=== PATIENT | male | born 1930 ===

== ENCOUNTER 2017-03-07 11:17 | Inpatient (IN) | payer MEDICARE, OTHER ==
--- NOTE | 2017-03-07 12:01 | C.PDOC ---
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 FAMILY REPORTS PT BASELINE AAO X 3 AND THAT HE HAS HAD DIFFICULTY WALKING DUE TO KNEE PAIN, BL KNEE ARTHRITIS. FAMILY NOTES EMS WAS CALLED DUE TO RIGHT ARM WEAKNESS YESTERDAY, REPORT EMS DID NOT FIND NEED TO BRING PT TO HOSPITAL. FAMILY ALSO REPORTS INCREASING CONFUSION FROM YESTERDAY WITH WORSENING SLURRED SPEECH. FAMILY ALSO REPORTS 2 EPISODES OF BLOODY EMESIS, DESCRIBED DARK BLOOD TINGED VOMIT. DENIES FEVER, CHILLS, DIARRHEA, TRAUMA, OR OTHER SX. EXAM AAO X 2 SEE NIH EXTREMITY: BILATERAL KNEE SWELLING, LIMITED ROM DUE TO PAIN Time Seen by Provider: 03/07/17 11:32 Chief Complaint (Nursing): Lower Extremity Problem/Injury History Per: Family History/Exam Limitations: language barrier Onset/Duration Of Symptoms: Days Current Symptoms Are (Timing): Still Present Recent travel outside of the [place]: No Past Medical History Reviewed: Historical Data, Nursing Documentation, Vital Signs Vital Signs: Last Vital Signs Temp 103.9 F H 03/07/17 12:51 Pulse 81 03/07/17 13:26 Resp 22 03/07/17 13:26 BP 127/53 L 03/07/17 13:26 Pulse Ox 95 03/07/17 13:33 - Medical History PMH: Arthritis, Asthma, Gastritis, HTN Family History: States: Unknown Family Hx - Social History Hx Tobacco Use: No Hx Alcohol Use: No Hx Substance Use: No - Immunization History Hx Tetanus Toxoid Vaccination: No Hx Influenza Vaccination: No Hx Pneumococcal Vaccination: No Review Of Systems Except As Marked, All Systems Reviewed And Found Negative. Constitutional: Negative for: Fever, Chills Cardiovascular: Negative for: Chest Pain Respiratory: Negative for: Cough, Shortness of Breath, Wheezing Gastrointestinal: Negative for: Vomiting Musculoskeletal: Positive for: Other (knee pain bilateral) Skin: Negative for: Rash Neurological: Positive for: Weakness (right upper extremity, right lower extremity), Change in Speech, Confusion. Negative for: Headache, Dizziness Physical Exam - Physical Exam Appears: Non-toxic, No Acute Distress, Other (AAO x 2) Skin: Warm, Dry Head: Atraumatic, Normacephalic Chest: Symmetrical Cardiovascular: Rhythm Regular Respiratory: Normal Breath Sounds, No Rales, No Rhonchi, No Wheezing Gastrointestinal/Abdominal: Soft, No Tenderness, No Guarding, No Rebound Back: Normal Inspection Extremity: Capillary Refill (< 2 sec.), No Deformity, Other (BILATERAL KNEE SWELLING, LIMITED ROM DUE TO PAIN ) Extremity: Bilateral: Atraumatic Neurological/Psych: Other (SEE NIH ) ED Course And Treatment - Laboratory Results Result Diagrams: 03/07/17 12:13 03/07/17 12:13 ECG: Interpreted By Me ECG Rhythm: Sinus Tachycardia ECG Interpretation: Abnormal Rate From EC O2 Sat by Pulse Oximetry: 95 Pulse Ox Interpretation: Normal - Radiology CXR: Interpreted by Me CXR Interpretation: Yes: No Acute Disease NIHSS Stroke Scale - Date/Time Evaluation Performed Date Performed: 03/07/17 Time Performed: 12:00 When Was NIHSS Performed: Baseline - How Severe is the Stroke Level of Consciousness: 0=Alert LOC to Questions: 0=Both comments correct LOC to commands: 0=Obeys both correctly Best Gaze: 0=Normal Visual: 0=No visual loss Facial: 1=Minor asymmetry Motor Arm - Left: 0=No drift Motor Arm - Right: 0=No drift Motor Leg - Left: 3=No effort against gravity (falls immediately) Motor Leg - Right: 3=No effort against gravity (falls immediately) Limb Ataxia: 0=Absent Sensory: 0=Normal Best Language: 0=No aphasia Dysarthia: 1=Mild to moderate slurring Extinction & Inattention (Neglect): 0=Normal, no object Score: 8 Progress - Re-Evaluation Re-evaluation Note: 03/07/17 12:34 +RECTAL TEMP. EXAM [facility]. 03/07/17 13:33 ct neg D/W DR MITCHELL 03/07/17 13:38 D/W DR CLEMONS WILL ADMIT - Data Reviewed Data Reviewed: Lab, Diagnostic imaging, EKG, Old records - Critical Care Citical Care: Excluding Proc Time Critical Care Time: 90 minutes - Continuity of Care Discussed patient case with:: Patient, Family-HIPPA compliant, PMD rTPA Inclusion/Exclusion - Refusal of Treatment Patient Refused Treatment: No - Inclusion Criteria for Altepase Patient is 18 years or Older: Yes The Clinical Diagnosis of Ischemic Stroke That is Causing a Potentially Disabling Neurological Deficit: Yes Time of Onset is Well Established to be Less Than 270 Minute Before Treatment Would Begin: No Risk/Benefit Discussed With Patient/Family Member Present: No - Exclusion Criteria for Altepase Uncontrolled Hypertension at Time of Treatment (Systolic BP above 185 or Diastolic BP above 110 mmHg): No Active Internal Bleeding: No Known Bleeding Diathesis Including but Not Limited to: Platelets Below 100,000/ mm,PTT Above 40 sec After Heparin Use, Current Use of Oral Anitcoagulant With INR Greater Than 1.7 or PT Greater Than 15 secs: No Evidence of an Intracranial Hemorrhage: No Evidence of Major Acute Infarct With Signs Greater Than 1/3 MCA Territory: No Suspicion of Subarachnoid Hemorrhage on Pretreatment Evaluation Even if CT Head Negative For Hemorrhage: No - Warning to TPA With Conditions Following Conditions Weighed Against Anticipated Benefit: Yes Condition: Age Greater Than 75 years, Recent GI Bleed w/in 21 Days Additional Condition (For 3-4.5 Hour Window): Age Greater Than 80 Disposition Counseled Patient/Family Regarding: Studies Performed, Diagnosis - Disposition Disposition: HOSPITALIZED Disposition Time: 13:39 Condition: STABLE - POA Present On Arrival: Poor Glycemic Control - Clinical Impression Clinical Impression: Fever, TIA (transient ischemic attack), Difficulty walking - Scribe Statement The provider has reviewed the documentation as recorded by the Giselle BARRIOS Provider Attestation: All medical record entries made by the Giselle were at my direction and personally dictated by me. I have reviewed the chart and agree that the record accurately reflects my personal performance of the history, physical exam, medical decision making, and the department course for this patient. I have also personally directed, reviewed, and agree with the discharge instructions and disposition. Decision To Admit - Pt Status Changed To: Hospital Disposition Of: Inpatient - Admit Certification Admit to Inpatient:: After my assessment, the patient will require hospitalization for at least two midnights. This is because of the severity of symptoms shown, intensity of services needed, and/or the medical risk in this patient being treated as an outpatient. - InPatient: Physician Admission Certification: I certify that this patient requires 2 or more midnights of care for the following reason:: SEE NOTE - . Bed Request Type: Telemetry Admitting Physician: Chucho Clemons Patient Diagnosis: Fever, TIA (transient ischemic attack), Difficulty walking
[2017-03-07 12:23] LABS: BASO % 0.2 % (0.0-2.0); EOS % 0.1 % (0.0-4.0); LYMPH # 0.5 K/uL (1.0-4.3); LYMPH % 2.9 % (20.0-40.0); MEAN CELL VOLUME 92.6 fL (80.0-94.0); MEAN CORPUSCULAR HEMOGLOBIN 30.7 pg (27.0-31.0); MEAN CORPUSCULAR HGB CONC 33.2 g/dL (33.0-37.0); MEAN PLATELET VOLUME 10.1 fL (7.2-11.7); MONO # 0.8 K/uL (0.0-0.8); MONO % 4.8 % (0.0-10.0); NEUT # 16.1 K/uL (1.8-7.0); PLATELET COUNT 129 K/uL (130-400); RBC 4.57 Mil/uL (4.40-5.90); RED CELL DISTRIBUTION WIDTH 14.8 % (11.5-14.5); WHITE BLOOD COUNT 17.5 K/uL (4.8-10.8)
[2017-03-07 12:33] LABS: INR 1.1; PROTHROMBIN TIME 12.3 SECONDS (9.7-12.2)
[2017-03-07 12:34] LABS: ALBUMIN 3.4 g/dL (3.5-5.0)
[2017-03-07 12:37] LABS: ALB/GLOB RATIO 0.8 (1.0-2.1); AST/SGOT 120 U/L (17-59); BLOOD UREA NITROGEN 19 mg/dL (9-20); GFR AFRICAN-AMERICAN > 60; GFR NON-AFRICAN AMERICAN > 60
[2017-03-07 12:38] LABS: ALT/SGPT 71 U/L (21-72); CALCIUM 8.2 mg/dl (8.6-10.4); HDL CHOLESTEROL 46 mg/dL (30-70)
[2017-03-07] MEDS ORDERED: Sodium Chloride 0.9% 2,000 ML ONE ×2 (12:44→14:01)
[2017-03-07 12:46] LABS: LYMPHOCYTE 2 % (20-40); MONOCYTE 4 % (0-10); NEUTROPHIL 94 % (50-75); TOTAL CELLS COUNTED 100
[2017-03-07 12:47] LABS: VENOUS BLOOD GAS BASE EXCESS -9.1 mmol/L (0.0-2.0); VENOUS BLOOD GAS PCO2 20 mmHg (40-60); VENOUS BLOOD GAS PO2 29 mm/Hg (30-55); VENOUS BLOOD PH 7.42 (7.32-7.43)
[2017-03-07 12:47] LABS: PLATELET ESTIMATE SLIGHTLY DECREASED (NORMAL)
[2017-03-07 12:49] LABS: LDL CHOLESTEROL 58 mg/dL (0-129)
[2017-03-07 13:04] LABS: URINE AMORPHOUS SEDIMENT OCC /ul (<OCC); URINE BACTERIA OCC (<OCC); URINE BILIRUBIN NEGATIVE (NEGATIVE); URINE BLOOD 3+ (NEGATIVE); URINE CLARITY Hazy (Clear); URINE GLUCOSE (UA) 1+ mg/dL (Normal); URINE LEUKOCYTE ESTERASE NEG Leu/uL (Negative); URINE NITRATE NEGATIVE (NEGATIVE); URINE PROTEIN 3+ mg/dL (NEGATIVE); URINE UROBILINOGEN NORMAL mg/dL (0.2-1.0)
[2017-03-07 13:05] LABS: URINE COLOR YELLOW (YELLOW)
[2017-03-07] MEDS ORDERED: Azithromycin 500 MG in Sodium Chloride 0.9% 250 ML IV STA (13:37)
[2017-03-07] MEDS ORDERED: cefTRIAXone IV 1 gm in Dextros 50 ML IV STA (13:37)
--- NOTE | 2017-03-07 13:38 | CT ---
PROCEDURE: CT HEAD WITHOUT CONTRAST. HISTORY: SLURRED SPEECH, R SIDED WEAKNESS, CONFUSION COMPARISON: None available. TECHNIQUE: Axial computed tomography images were obtained through the head/brain without intravenous contrast. Radiation dose: Total exam DLP = 813.48 MGy-cm. This CT exam was performed using one or more of the following dose reduction techniques: Automated exposure control, adjustment of the mA and/or kV according to patient size, and/or use of iterative reconstruction technique. FINDINGS: HEMORRHAGE: No acute parenchymal, subarachnoid or extra-axial hemorrhage. . BRAIN: Mild to moderate chronic periventricular white matter ischemic changes are seen extending peripherally into the deep and subcortical white matter both cerebral hemispheres. Is also extend into the white matter tracts of both basal nuclei. . Note that the possibility of a hyperacute infarct may not be evident on initial CT imaging. Clinical correlation recommended to determine whether additional studies such as MRI with diffusion imaging is required any urgency of such imaging based on whether the patient is a treatment window for tPA therapy. Mild -moderate generalized volume loss. VENTRICLES: No evidence of obstructive hydrocephalus. CALVARIUM: There are no acute calvarial fractures PARANASAL SINUSES: Unremarkable as visualized. No significant inflammatory changes. MASTOID AIR CELLS: Unremarkable as visualized. No inflammatory changes. OTHER FINDINGS: None. IMPRESSION: No acute intracranial hemorrhage. Mild to moderate chronic periventricular white matter ischemic changes are seen extending peripherally into the deep and subcortical white matter both cerebral hemispheres. Is also extend into the white matter tracts of both basal nuclei. . Note that the possibility of a hyperacute infarct may not be evident on initial CT imaging. Clinical correlation recommended to determine whether additional studies such as MRI with diffusion imaging is again notches CT I required any urgency of such imaging based on whether the patient is a treatment window for tPA therapy. Mild -moderate generalized volume loss Case discussed with Dr. Gillespie at approximately 1:33 p.m. with written down and read back verification.
[2017-03-07] MEDS ORDERED: cefTRIAXone IV 1 gm in Dextros 50 ML IVPB ONE (13:57)
[2017-03-07] MEDS ORDERED: Azithromycin 500mg/250ML NS 500 MG/250 ML BAG IVPB ONE (13:58)
--- NOTE | 2017-03-07 14:05 | RAD ---
HISTORY: STROKE COMPARISON: No prior. FINDINGS: LUNGS: Mild to moderate venous congestion with bibasilar airspace opacities and question trace right pleural effusion. Biapical pleural thickening with upper lobe granulomatous changes. PLEURA: As above. CARDIOVASCULAR: Tortuous ectatic aorta. Mild cardiomegaly. OSSEOUS STRUCTURES: No significant abnormalities. VISUALIZED UPPER ABDOMEN: Normal. OTHER FINDINGS: None. IMPRESSION: Mild to moderate venous congestion with bibasilar airspace opacities and question trace right pleural effusion. Biapical pleural thickening with upper lobe granulomatous changes.
[2017-03-07] MEDS ORDERED: Sodium Chloride 0.9% 500 ML IV ONE (14:49)
[2017-03-07 14:50] LABS: VENOUS BLOOD GAS BASE EXCESS -8.4 mmol/L (0.0-2.0); VENOUS BLOOD GAS PCO2 31 mmHg (40-60); VENOUS BLOOD GAS PO2 22 mm/Hg (30-55); VENOUS BLOOD PH 7.33 (7.32-7.43)
[2017-03-07 17:49] LABS: ABG ALLEN TEST N; ARTERIAL BLOOD GAS HCO3 19.3 mmol/L (21-28); ARTERIAL BLOOD GAS HEMOGLOBIN 13.7 g/dL (11.7-17.4); ARTERIAL BLOOD GAS O2 SAT 98.2 % (95-98); ARTERIAL BLOOD GAS PCO2 27 mm/Hg (35-45); ARTERIAL BLOOD GAS PH 7.39 (7.35-7.45); ARTERIAL BLOOD GAS PO2 75 mm/Hg (80-100); ARTERIAL BLOOD GAS TCO2 17.1 mmol/L (22-28)
[2017-03-07] MEDS: Piperacillin/Tazobact 3.375 GM in Sodium Chloride 100 ML IVPB SCH (19:45)
[2017-03-07] MEDS: Albuterol 0.042% Inhal Sol (1.25 mg/3 mL) UD INH SCH (19:56)
--- NOTE | 2017-03-07 23:10 | CP.PCM.HP ---
History of Present Illness - History of Present Illness History of Present Illness: 86 year old male developed right sided weakness, progressive mental confusion,fever and joint pain. Patient was evaluated and admission was advised. He has a long history of degenerative joint disease, ASHD, and osteoporosis. Present on Admission - Present on Admission Any Indicators Present on Admission: No History of DVT/PE: No History of Uncontrolled Diabetes: No Urinary Catheter: No Decubitus Ulcer Present: No History Surgical Site Infection Following: None Review of Systems - Review of Systems Systems not reviewed;Unavailable: Dementia - Constitutional Constitutional: Weakness - EENT Eyes: Change in Vision Ears: Decreased Hearing Nose/Mouth/Throat: Sinus Pain - Cardiovascular Cardiovascular: Dyspnea on Exertion - Respiratory Respiratory: Dyspnea on Exertion - Gastrointestinal Gastrointestinal: Constipation - Genitourinary Genitourinary: Urinary Frequency - Musculoskeletal Musculoskeletal: Arthralgias - Integumentary Integumentary: Dry Skin - Neurological Neurological: Burning Sensations - Psychiatric Psychiatric: Memory Loss - Endocrine Endocrine: Fatigue Past Patient History - Tetanus Immunizations Tetanus Immunization: Up to Date - Past Medical History & Family History Past Medical History?: Yes - Past Social History Smoking Status: Never Smoked Chewing Tobacco Use: No Cigar Use: No Alcohol: None Drugs: Denies Home Situation {Lives}: With Family - CARDIAC Hx Cardiac Disorders: Yes Hx Cardia Arrhythmia: Yes Hx Hypertension: Yes - PULMONARY Hx Asthma: Yes - HEENT Hx Macular Degeneration: Yes - MUSCULOSKELETAL/RHEUMATOLOGICAL Hx Arthritis: Yes Hx Back Pain: Yes Hx Degenerative Joint Disease: Yes Hx Falls: Yes Hx Osteoporosis: Yes - GASTROINTESTINAL Hx Gastritis: Yes - PSYCHIATRIC Hx Substance Use: No - SURGICAL HISTORY Hx Surgeries: No - ANESTHESIA Hx Anesthesia: No Hx Anesthesia Reactions: No Hx Malignant Hyperthermia: No Has any member of the family had a problem w/ anesthesia?: No Meds Allergies/Adverse Reactions: Allergies Allergy/AdvReac Type Severity Reaction Status Date / Time No Known Allergies Allergy Unverified 03/07/17 11:29 Physical Exam - Constitutional Appears: Confused - Head Exam Head Exam: NORMOCEPHALIC - Eye Exam Eye Exam: PERRL Pupil Exam: NORMAL ACCOMODATION - ENT Exam ENT Exam: Normal Exam - Neck Exam Neck exam: Positive for: Normal Inspection - Respiratory Exam Respiratory Exam: Decreased Breath Sounds - Cardiovascular Exam Cardiovascular Exam: Irregular Rhythm - GI/Abdominal Exam GI & Abdominal Exam: Normal Bowel Sounds - Rectal Exam Rectal Exam: Deferred - Exam Exam: NORMAL INSPECTION - Extremities Exam Extremities exam: Positive for: tenderness - Back Exam Back exam: paraspinal tenderness - Neurological Exam Neurological exam: Altered - Psychiatric Exam Psychiatric exam: Depressed - Skin Skin Exam: Dry Results - Vital Signs Recent Vital Signs: Last Vital Signs Temp 97.5 F L 03/07/17 17:01 Pulse 76 03/07/17 19:58 Resp 20 03/07/17 17:01 BP 107/51 L 03/07/17 17:01 Pulse Ox 96 03/07/17 17:01 - Labs Result Diagrams: 03/07/17 12:13 03/07/17 12:13 Labs: Laboratory Results - last 24 hr 03/07/17 03/07/17 14:47 17:40 Puncture Site Rb pCO2 27 L pO2 22 L 75 L HCO3 19.3 L ABG pH 7.39 ABG Total CO2 17.1 L ABG O2 Saturation 98.2 H ABG Base Excess -7.1 L ABG Hemoglobin 13.7 ABG Carboxyhemoglobin 1.7 H POC ABG HHb (Measured) 1.7 ABG Methemoglobin 1.4 [place] Test N VBG pH 7.33 VBG pCO2 31 L VBG HCO3 16.6 VBG Total CO2 17.3 L VBG O2 Sat (Calc) 51.9 VBG Base Excess -8.4 L VBG Potassium 3.3 L A-a O2 Difference 91.0 Respiratory Index 1.2 Hgb O2 Saturation 95.2 Sodium 136.0 Chloride 111.0 H Glucose 140 H Lactate 1.9 Liter Flow 2.0 FiO2 28.0 Venous Blood Potassium 3.3 L Assessment & Plan (1) Altered mental status Status: Acute (2) Fever Status: Acute (3) TIA (transient ischemic attack) Status: Acute (4) Arthritis Status: Acute
[2017-03-08] MEDS: Albuterol 0.042% Inhal Sol (1.25 mg/3 mL) UD INH SCH ×4 (01:27→19:55)
[2017-03-08] MEDS: Piperacillin/Tazobact 3.375 GM in Sodium Chloride 100 ML IVPB SCH ×3 (03:11→19:30)
[2017-03-08 06:36] LABS: BASO % 0.2 % (0.0-2.0); EOS # 0.1 K/uL (0.0-0.7); EOS % 0.9 % (0.0-4.0); HEMOGLOBIN 13.4 g/dL (12.0-18.0); LYMPH # 0.5 K/uL (1.0-4.3); LYMPH % 3.8 % (20.0-40.0); MEAN CELL VOLUME 92.8 fL (80.0-94.0); MEAN CORPUSCULAR HEMOGLOBIN 31.1 pg (27.0-31.0); MEAN CORPUSCULAR HGB CONC 33.5 g/dL (33.0-37.0); MEAN PLATELET VOLUME 10.3 fL (7.2-11.7); MONO # 0.5 K/uL (0.0-0.8); MONO % 3.7 % (0.0-10.0); NEUT # 11.8 K/uL (1.8-7.0); NEUT % 91.4 % (50.0-75.0); PLATELET COUNT 135 K/uL (130-400); RBC 4.32 Mil/uL (4.40-5.90); RED CELL DISTRIBUTION WIDTH 15.9 % (11.5-14.5); WHITE BLOOD COUNT 12.9 K/uL (4.8-10.8)
[2017-03-08 07:36] LABS: FREE T4 1.27 ng/dL (0.78-2.19)
[2017-03-08 09:22] LABS: PROLACTIN 23.2 ng/mL (3.7-17.9)
[2017-03-08 09:37] LABS: BANDS 1 % (0-2); LYMPHOCYTE 2 % (20-40); MONOCYTE 5 % (0-10); NEUTROPHIL 92 % (50-75); TOTAL CELLS COUNTED 100
[2017-03-08 09:38] LABS: PLATELET ESTIMATE NORMAL (NORMAL)
--- NOTE | 2017-03-08 11:30 | US ---
HISTORY: Abdominal pain COMPARISON: CT abdomen from 11/23/2011 TECHNIQUE: Sonographic evaluation of the abdomen. FINDINGS: LIVER: Measures 15.3 cm. Normal echogenicity of the liver parenchyma. No mass. No intrahepatic bile duct dilatation. GALLBLADDER: There are no gallstones. There is mild gallbladder wall thickening and minimal pericholecystic fluid. The sonographic Damian's sign is negative. COMMON BILE DUCT: Measures 6.5 mm. No stones. No dilatation. PANCREAS: Unremarkable as visualized. No mass. No ductal dilatation. RIGHT KIDNEY: Measures 9.5cm. Normal echogenicity. No calculus, mass, or hydronephrosis. LEFT KIDNEY: Measures 10.0cm. Normal echogenicity. No calculus, mass, or hydronephrosis. There is a 1.9 x 1.6 x 2.3 cm simple cyst in the upper pole. SPLEEN: Normal in size and contour. No mass. AORTA: No aneurysmal dilatation. IVC: Unremarkable. OTHER FINDINGS: None. IMPRESSION: Limited examination as the patient was unable to hold breath. Allowing for this mild gallbladder wall thickening and small amount of pericholecystic fluid. No evidence of cholelithiasis. Sonographic Damian's sign is negative. Acute acalculous cholecystitis cannot be entirely excluded. Clinical follow-up is advised.
[2017-03-08 12:21] LABS: FOLATE 19.1 ng/mL
[2017-03-08 13:13] LABS: TROPONIN I 0.275 ng/mL (0.00-0.120)
--- NOTE | 2017-03-08 20:14 | MRI ---
PROCEDURE: MRI BRAIN WITHOUT CONTRAST HISTORY: TIA COMPARISON: Noncontrast head CT from 03/07/2017 and 1:13 p.m. TECHNIQUE: Multiplanar, multisequence MR images of the brain were obtained without intravenous contrast enhancement. FINDINGS: HEMORRHAGE: None DWI: No evidence of an acute or early subacute infarction. BRAIN PARENCHYMA: There are moderate chronic microangiopathic changes. There is no mass, mass effect or abnormal extra-axial fluid collection. The midline sagittal structures are normal. VENTRICLES: There is moderate age-related global parenchymal volume loss and proportionate enlargement of the ventricles and cortical sulci. CRANIUM: There is normal bone marrow signal pattern. ORBITS: Grossly unremarkable. PARANASAL SINUSES/MASTOIDS: There is a retention cyst/ polyp in the right maxillary sinus. The remaining included paranasal sinuses and mastoid air cells are predominantly clear. VASCULAR SYSTEM: There are normal signal voids in the larger intracranial arteries. OTHER FINDINGS: None. IMPRESSION: No acute intracranial abnormality. Moderate chronic microangiopathic changes and moderate age-related global parenchymal volume loss.
--- NOTE | 2017-03-08 20:58 | CP.PCM.CON ---
History of Present Illness - History of Present Illness History of Present Illness: 86 yo male brought to the ED because of confusion, slurred speech, right sided weakness and fever. He was found to have a leucocytosis, a slightly elevated serum TNI's and mild congestion on the CXR with elevated Pro-BNP. CT scan of the head and MRI of the head were negative for an acute cerebral infract. He denies any chest pain, any SOB. He was put on Rocephin and Zithromax with improvement. He is now alert, oriented with no complaint. Initial blood cultures were negative. He is known to have a bronchial asthma, a hypertension, an osteoarthritis. Review of Systems - Constitutional Constitutional: Fever, Weakness - Musculoskeletal Musculoskeletal: Muscle Weakness - Neurological Neurological: Abnormal Speech, Confusion, Focal Weakness Past Patient History - Tetanus Immunizations Tetanus Immunization: Up to Date - Past Medical History & Family History Past Medical History?: Yes - Past Social History Smoking Status: Never Smoked Chewing Tobacco Use: No Cigar Use: No Alcohol: None Drugs: Denies Home Situation {Lives}: With Family - CARDIAC Hx Cardiac Disorders: Yes Hx Cardia Arrhythmia: Yes Hx Hypertension: Yes - PULMONARY Hx Asthma: Yes - HEENT Hx Macular Degeneration: Yes - MUSCULOSKELETAL/RHEUMATOLOGICAL Hx Arthritis: Yes Hx Back Pain: Yes Hx Degenerative Joint Disease: Yes Hx Falls: Yes Hx Osteoporosis: Yes - GASTROINTESTINAL Hx Gastritis: Yes - PSYCHIATRIC Hx Substance Use: No - SURGICAL HISTORY Hx Surgeries: No - ANESTHESIA Hx Anesthesia: No Hx Anesthesia Reactions: No Hx Malignant Hyperthermia: No Has any member of the family had a problem w/ anesthesia?: No Meds Allergies/Adverse Reactions: Allergies Allergy/AdvReac Type Severity Reaction Status Date / Time No Known Allergies Allergy Unverified 03/07/17 11:29 - Medications Medications: Current Medications Acetaminophen (Tylenol 325mg Tab) 650 mg PO Q6H PRN PRN Reason: MODERATE PAIN (4-7) Last Admin: 03/08/17 14:45 Dose: 650 mg Albuterol Sulfate (Albuterol 0.042% Inhal Alanis (1.25mg/3ml) Ud) 1.25 mg INH RQ6 [facility] Last Admin: 03/08/17 13:52 Dose: 1.25 mg Amlodipine Besylate (Norvasc) 2.5 mg PO DAILY [facility] Last Admin: 03/08/17 14:30 Dose: 2.5 mg Folic Acid (Folic Acid) 1 mg PO DAILY [facility] Hydroxyzine HCl (Atarax) 10 mg PO BID [facility] Last Admin: 03/08/17 18:55 Dose: 10 mg Piperacillin Sod/Tazobactam (Sod 3.375 gm/ Sodium Chloride) 100 mls @ 200 mls/ hr IVPB Q8H [facility] Last Admin: 03/08/17 19:30 Dose: 200 mls/hr Montelukast Sodium (Singulair) 10 mg PO HS [facility] Pantoprazole Sodium (Protonix Ec Tab) 40 mg PO DAILY [facility] Physical Exam - Constitutional Appears: No Acute Distress, Chronically Ill - Head Exam Head Exam: NORMAL INSPECTION - Eye Exam Eye Exam: Normal appearance - ENT Exam ENT Exam: Normal Exam - Neck Exam Neck exam: Positive for: Normal Inspection - Respiratory Exam Respiratory Exam: Rhonchi Additional comments: Few rhonchi heard at both bases. - Cardiovascular Exam Cardiovascular Exam: REGULAR RHYTHM - GI/Abdominal Exam GI & Abdominal Exam: Normal Bowel Sounds, Soft - Rectal Exam Rectal Exam: Deferred - Extremities Exam Extremities exam: Positive for: normal inspection - Back Exam Back exam: NORMAL INSPECTION - Neurological Exam Neurological exam: Alert, Oriented x3 - Psychiatric Exam Psychiatric exam: Anxious - Skin Skin Exam: Dry, Intact, Normal Color, Warm Results - Vital Signs Recent Vital Signs: Last Vital Signs Temp 98.1 F 03/08/17 11:13 Pulse 98 H 03/08/17 11:13 Resp 20 03/08/17 11:13 BP 166/71 H 03/08/17 11:13 Pulse Ox 94 L 03/08/17 11:13 - Labs Result Diagrams: 03/08/17 06:20 03/08/17 06:20 Labs: Laboratory Results - last 24 hr 03/08/17 03/08/17 03/08/17 06:20 06:20 06:20 WBC 12.9 H RBC 4.32 L Hgb 13.4 Hct 40.1 MCV 92.8 MCH 31.1 H MCHC 33.5 RDW 15.9 H Plt Count 135 MPV 10.3 Neut % (Auto) 91.4 H Lymph % (Auto) 3.8 L [place] % (Auto) 3.7 Eos % (Auto) 0.9 Baso % (Auto) 0.2 Neut # 11.8 H Lymph # 0.5 L [place] # 0.5 Eos # 0.1 Baso # 0.0 Neutrophils % (Manual) 92 H Band Neutrophils % 1 Lymphocytes % (Manual) 2 L Monocytes % (Manual) 5 Platelet Estimate Normal RBC Morphology Normal ESR 74 H Sodium 139 Potassium 4.1 Chloride 110 H Carbon Dioxide 18 L BUN 22 H Total Creatine Kinase 2154 H Troponin I 0.2750 H* NT-Pro-B Natriuret Pep 2300 H Vitamin B12 304 Folate 19.1 Homocysteine 12.8 Free T4 1.27 TSH 3rd Generation 1.02 1.12 Prolactin 23.2 H Assessment & Plan (1) TIA (transient ischemic attack) Status: Acute (2) Elevated troponin I level Assessment and Plan: There is however no chest pain, no SOB, no acute ECG change. Will get an ECHO to assess LV wall motion. Status: Acute (3) Elevated brain natriuretic peptide (BNP) level Assessment and Plan: ECHO to assess Cardiac chambers and valves. Status: Acute
--- NOTE | 2017-03-08 21:14 | CP.PCM.PN ---
Subjective - Date & Time of Evaluation Date of Evaluation: 03/08/17 Time of Evaluation: 14:10 - Subjective Subjective: Patient is afebrile, more alert and responsive. He denies any chest pain or abdominal pain. WBC's down to 12,000. Patient responding to antibiotic therapy. Neurology evaluation pending. Objective - Vital Signs/Intake and Output Vital Signs (last 24 hours): Temp Pulse Resp BP Pulse Ox 98.1 F 98 H 20 166/71 H 94 L 03/08/17 11:13 03/08/17 11:13 03/08/17 11:13 03/08/17 11:13 03/08/17 11:13 - Medications Medications: Current Medications Acetaminophen (Tylenol 325mg Tab) 650 mg PO Q6H PRN PRN Reason: MODERATE PAIN (4-7) Last Admin: 03/08/17 14:45 Dose: 650 mg Albuterol Sulfate (Albuterol 0.042% Inhal Alanis (1.25mg/3ml) Ud) 1.25 mg INH RQ6 [facility] Last Admin: 03/08/17 13:52 Dose: 1.25 mg Amlodipine Besylate (Norvasc) 2.5 mg PO DAILY [facility] Last Admin: 03/08/17 14:30 Dose: 2.5 mg Folic Acid (Folic Acid) 1 mg PO DAILY [facility] Hydroxyzine HCl (Atarax) 10 mg PO BID [facility] Last Admin: 03/08/17 18:55 Dose: 10 mg Piperacillin Sod/Tazobactam (Sod 3.375 gm/ Sodium Chloride) 100 mls @ 200 mls/ hr IVPB Q8H [facility] Last Admin: 03/08/17 19:30 Dose: 200 mls/hr Montelukast Sodium (Singulair) 10 mg PO HS [facility] Pantoprazole Sodium (Protonix Ec Tab) 40 mg PO DAILY [facility] - Labs Labs: 03/08/17 06:20 03/08/17 06:20 PT 12.3 SECONDS (9.7-12.2) H 03/07/17 12:13 INR 1.1 03/07/17 12:13 APTT 39 SECONDS (21-34) H 03/07/17 12:13 - Constitutional Appears: No Acute Distress - Head Exam Head Exam: NORMAL INSPECTION - Eye Exam Eye Exam: Normal appearance Pupil Exam: NORMAL ACCOMODATION - ENT Exam ENT Exam: Normal Exam - Neck Exam Neck Exam: Normal Inspection - Respiratory Exam Respiratory Exam: Decreased Breath Sounds - Cardiovascular Exam Cardiovascular Exam: REGULAR RHYTHM - GI/Abdominal Exam GI & Abdominal Exam: Normal Bowel Sounds - Rectal Exam Rectal Exam: Deferred - Exam Exam: NORMAL INSPECTION - Extremities Exam Extremities Exam: Tenderness - Back Exam Back Exam: NORMAL INSPECTION - Neurological Exam Neurological Exam: Alert - Psychiatric Exam Psychiatric exam: Normal Affect - Skin Skin Exam: Dry Assessment and Plan (1) Altered mental status Status: Acute (2) Fever Status: Acute (3) TIA (transient ischemic attack) Status: Acute (4) Arthritis Status: Acute (5) Difficulty walking Status: Acute (6) Elevated brain natriuretic peptide (BNP) level Status: Acute (7) Elevated troponin I level Status: Acute
--- NOTE | 2017-03-08 21:31 | C.PDOC ---
History Of Present Illness HE WAS PRESENTING WITH 2 DAYS HISTORY OF SLURRED SPEECH AND RIGHT ARM WEAKNESS PER HISTORY .DENIES VISUAL OR GAIT DISTURBANCES. NO IMPAIRED MENTATION . NO LOC Time Seen by Provider: 03/07/17 11:32 Chief Complaint (Nursing): Lower Extremity Problem/Injury Onset/Duration Of Symptoms: Other (NO PRESENTING SYMPTOMS EXCEPT LEG WEAKNESS) Past Medical History Vital Signs: Last Vital Signs Temp 97.4 F L 03/13/17 15:18 Pulse 63 03/13/17 16:00 Resp 20 03/13/17 15:18 BP 134/70 03/13/17 15:18 Pulse Ox 94 L 03/16/17 11:13 - Medical History PMH: Arthritis, Asthma, Cardia Arrhythmia, Gastritis, HTN, Osteoporosis Family History: States: Unknown Family Hx - Social History Hx Tobacco Use: No Hx Alcohol Use: No Hx Substance Use: No - Immunization History Hx Tetanus Toxoid Vaccination: No Hx Influenza Vaccination: No Hx Pneumococcal Vaccination: No Physical Exam - Physical Exam Appears: Well (x), No Acute Distress Skin: Normal Color, Warm, Dry Head: Atraumatic Neck: Normal Cardiovascular: Rhythm Regular Respiratory: Normal Breath Sounds Extremity: Other (BOTH LEG WEAKNESS AND STRENGTH IS 3/5) Pulses: Left Carotid: Normal, Right Carotid: Normal DTR: Bicep (R): 0, Bicep (L): 0, Tricep (R): 0, Tricep (L): 0, Knee (R): 0, Knee (L): 0, Ankle (R): 0, Ankle (L): 0 Neurological/Psych: Oriented x3, Normal Speech, Normal Cognition, Normal Cranial Nerves Gait: Unable To Assess Extremity: Right: No Drift, Left: No Drift ED Course And Treatment - Laboratory Results Result Diagrams: 03/13/17 07:12 03/13/17 07:12 O2 Sat by Pulse Oximetry: 94 Progress Note: MRI- SMALL VESSEL DISEASE NO ACUTE ISCHEMIC PROCESS. EEG TO BE CHECKED TO R/O SEIZURES. OOB. PHYSICAL THERAPY. CONTINUE ANTIPLATLETS Disposition - Disposition Disposition: HOSPITALIZED Condition: STABLE - Clinical Impression Clinical Impression: Fever, TIA (transient ischemic attack), Difficulty walking
[2017-03-09] MEDS: Albuterol 0.042% Inhal Sol (1.25 mg/3 mL) UD INH SCH ×3 (01:15→13:59)
[2017-03-09] MEDS: Piperacillin/Tazobact 3.375 GM in Sodium Chloride 100 ML IVPB SCH ×3 (02:59→19:49)
[2017-03-09 08:19] LABS: BASO % 0.4 % (0.0-2.0); EOS % 0.1 % (0.0-4.0); HEMOGLOBIN 12.8 g/dL (12.0-18.0); LYMPH # 0.5 K/uL (1.0-4.3); LYMPH % 6.8 % (20.0-40.0); MEAN CELL VOLUME 92.2 fL (80.0-94.0); MEAN CORPUSCULAR HEMOGLOBIN 30.7 pg (27.0-31.0); MEAN CORPUSCULAR HGB CONC 33.3 g/dL (33.0-37.0); MEAN PLATELET VOLUME 9.8 fL (7.2-11.7); MONO # 0.3 K/uL (0.0-0.8); MONO % 4.7 % (0.0-10.0); NEUT # 6.6 K/uL (1.8-7.0); PLATELET COUNT 118 K/uL (130-400); RBC 4.16 Mil/uL (4.40-5.90); RED CELL DISTRIBUTION WIDTH 15.8 % (11.5-14.5); WHITE BLOOD COUNT 7.5 K/uL (4.8-10.8)
[2017-03-09] MEDS: Pantoprazole 40 mg EC Tab PO SCH (09:31)
[2017-03-09 09:38] LABS: BANDS 1 % (0-2); LYMPHOCYTE 4 % (20-40); MONOCYTE 4 % (0-10); NEUTROPHIL 91 % (50-75); TOTAL CELLS COUNTED 100
[2017-03-09 09:39] LABS: ANISOCYTOSIS SLIGHT; PLATELET ESTIMATE SLIGHTLY DECREASED (NORMAL)
--- NOTE | 2017-03-09 11:29 | RAD ---
PROCEDURE: Cervical Spine Radiographs. HISTORY: Pain. COMPARISON: None. FINDINGS: BONES: There is straightening of the cervical spine with loss of normal cervical lordosis. Vertebral alignment is normal. Vertebral height is maintained. The C7 vertebral body is not visualized on lateral projection. DISC SPACES: There is mild degenerative disc disease at C2-3. SOFT TISSUES: Normal. No prevertebral soft tissue swelling. OTHER FINDINGS: None. IMPRESSION: Mild degenerative disc disease at C2-3. Straightening of the cervical spine may be positional or related to muscle spasm. .
--- NOTE | 2017-03-09 11:34 | RAD ---
PROCEDURE: Radiographs of the Lumbar Spine. HISTORY: Back pain COMPARISON: No prior. FINDINGS: BONES: There are age indeterminate osteoporotic compression fractures in the T11, T12 and L1 vertebral bodies. There is diffuse bone demineralization.. There is mild levoscoliosis in the lumbar spine. There is a degenerative mild anterior listhesis of L5 on S1. DISC SPACES: There is multilevel degenerative disc disease with anterior osteophytes, reduced disc heights and multilevel facet arthropathy, worse at L5-S1. OTHER FINDINGS: There are no pathologic soft tissue calcifications. IMPRESSION: 1. Age indeterminate osteoporotic compression fractures in the T11, T12 and L1 vertebral bodies. 2. Multilevel degenerative disc disease, worse at L5-S1.
--- NOTE | 2017-03-09 15:51 | CP.PCM.CON ---
History of Present Illness - History of Present Illness History of Present Illness: 86 yo male referred for eval of fever with + blood cultures Presented eith AMS / fever and slurred speech His weakness is improved but he is confused- saying he's been here for 3 weeks and asking to go ghome He denies headache, neck stiffness Hx deemed to be unreliable . CT scan of the head and MRI of the head were negative for an acute cerebral infract. He denies any chest pain, any SOB. He was put on Rocephin and Zithromax with improvement now on Vanco/ Zosyn Cultures pending Looks ill confused and has dry crackes await Pulm eval dr kaplan Review of Systems - Review of Systems Systems not reviewed;Unavailable: Altered Mental Status - Constitutional Constitutional: As Per HPI, Chills, Fever - EENT Eyes: absent: As Per HPI, Blind Spots, Blurred Vision, Change in Vision, Decreased Night Vision, Diplopia, Discharge, Dry Eye, Exophthalmos, Floaters, Irritation, Itchy Eyes, Loss of Peripheral Vision, Pain, Photophobia, Requires Corrective Lenses, Sees Flashes, Spots in Vision, Tunnel Vision, Other Visual Disturbances, Loss of Vision, Other Ears: absent: As Per HPI, Decreased Hearing, Ear Discharge, Ear Pain, Tinnitus, Abnormal Hearing, Disequilibrium, Dizziness, Other Nose/Mouth/Throat: absent: As Per HPI, Epistaxis, Nasal Congestion, Nasal Discharge, Nasal Obstruction, Nasal Trauma, Nose Pain, Post Nasal Drip, Sinus Pain, Sinus Pressure, Bleeding Gums, Change in Voice, Dental Pain, Dry Mouth, Dysphagia, Halitosis, Hoarsness, Lip Swelling, Mouth Lesions, Mouth Pain, Odynophagia, Sore Throat, Throat Swelling, Tongue Swelling, Facial Pain, Neck Pain, Neck Mass, Other - Cardiovascular Cardiovascular: As Per HPI - Respiratory Respiratory: absent: As Per HPI, Cough, Dyspnea, Hemoptysis, Dyspnea on Exertion , Wheezing, Snoring, Stridor, Pain on Inspiration, Chest Congestion, Excessive Mucous Production, Change in Mucous Color, Pain with Coughing, Other - Gastrointestinal Gastrointestinal: absent: As Per HPI, Abdominal Pain, Belching, Bloating, Change in Bowel Habits, Change in Stool Character, Coffee Ground Emesis, Constipation, Cramping, Diarrhea, Dyspepsia, Dysphagia, Early Satiety, Excessive Flatus, Fecal Incontinence, Heartburn, Hematemesis, Hematochezia, Loose Stools, Melena, Nausea, Odynophagia, Temesmus, Vomiting, Other - Genitourinary Genitourinary: absent: As Per HPI, Change in Urinary Stream, Difficulty Urinating, Dysuria, Flank Pain, Hematuria, Pyuria, Nocturia, Urinary Incontinence, Urinary Frequency, Urinary Hesitance, Urinary Urgency, Voiding Freq/Small Amts, Freq UTI, Hx Renal/Bladder Calculi, Hx /Renal Surgery, Bladder Distension, Other - Musculoskeletal Musculoskeletal: As Per HPI - Integumentary Integumentary: absent: As Per HPI, Acne, Alopecia, Bleeding Lesions, Change in Hair, Change in Nails, Change in Pigmentation, Changing Lesions, Dry Skin, Erythema, Furuncle, Hirsutism, Lesions, New Lesions, Non-Healing Lesions, Photosensitivity, Pruritus, Rash, Skin Pain, Skin Ulcer, Sores, Striae, Swelling , Unusual Bruising, Wounds, Jaundice, Other - Neurological Neurological: As Per HPI - Psychiatric Psychiatric: absent: As Per HPI, Abnormal Sleep Pattern, Anhedonia, Anxiety, Auditory Hallucinations, Behavioral Changes, Change in Appetite, Change in Libido, Confusion, Depression, Difficulty Concentrating, Hallucinations, Homicidal Ideation, Hopelessness, Irritability, Memory Loss, Mood Swings, Panic Attacks, Paranoia, Suicidal Ideation, Visual Hallucinations, Tactile Hallucinations, Other - Endocrine Endocrine: absent: As Per HPI, Change in Body Appearance, Change in Libido, Cold Intolorance, Deepening of Voice, Excessive Sweating, Fatigue, Flushing, Heat Intolorance, Increase in Ring/Shoe/Hat Size, Palpitations, Polydipsia, Polyphagia, Polyuria, Other - Hematologic/Lymphatic Hematologic: absent: As Per HPI, Easy Bleeding, Easy Bruising, Lymphadenopathy, Other Past Patient History - Tetanus Immunizations Tetanus Immunization: Up to Date - Past Medical History & Family History Past Medical History?: Yes - Past Social History Smoking Status: Never Smoked Chewing Tobacco Use: No Cigar Use: No Alcohol: None Drugs: Denies Home Situation {Lives}: With Family - CARDIAC Hx Cardia Arrhythmia: Yes Hx Hypertension: Yes - PULMONARY Hx Asthma: Yes - HEENT Hx Macular Degeneration: Yes - MUSCULOSKELETAL/RHEUMATOLOGICAL Hx Arthritis: Yes Hx Osteoporosis: Yes - GASTROINTESTINAL Hx Gastritis: Yes - PSYCHIATRIC Hx Substance Use: No - SURGICAL HISTORY Hx Surgeries: No - ANESTHESIA Hx Anesthesia: No Hx Anesthesia Reactions: No Hx Malignant Hyperthermia: No Has any member of the family had a problem w/ anesthesia?: No Meds Allergies/Adverse Reactions: Allergies Allergy/AdvReac Type Severity Reaction Status Date / Time No Known Allergies Allergy Unverified 03/07/17 11:29 - Medications Medications: Current Medications Acetaminophen (Tylenol 325mg Tab) 650 mg PO Q6H PRN PRN Reason: MODERATE PAIN (4-7) Last Admin: 03/08/17 14:45 Dose: 650 mg Albuterol Sulfate (Albuterol 0.042% Inhal Alanis (1.25mg/3ml) Ud) 1.25 mg INH RQ6 [facility] Last Admin: 03/09/17 13:59 Dose: 1.25 mg Amlodipine Besylate (Norvasc) 2.5 mg PO DAILY [facility] Last Admin: 03/09/17 09:32 Dose: 2.5 mg Folic Acid (Folic Acid) 1 mg PO DAILY [facility] Last Admin: 03/09/17 09:33 Dose: 1 mg Hydroxyzine HCl (Atarax) 10 mg PO BID [facility] Last Admin: 03/09/17 09:32 Dose: 10 mg Piperacillin Sod/Tazobactam (Sod 3.375 gm/ Sodium Chloride) 100 mls @ 200 mls/ hr IVPB Q8H [facility] Last Admin: 03/09/17 11:25 Dose: 200 mls/hr Montelukast Sodium (Singulair) 10 mg PO HS [facility] Last Admin: 03/08/17 21:49 Dose: 10 mg Pantoprazole Sodium (Protonix Ec Tab) 40 mg PO DAILY [facility] Last Admin: 03/09/17 09:31 Dose: 40 mg Physical Exam - Constitutional Appears: No Acute Distress, Confused, Chronically Ill - Head Exam Head Exam: ATRAUMATIC, NORMAL INSPECTION, NORMOCEPHALIC - Eye Exam Eye Exam: PERRL. absent: Scleral icterus - ENT Exam ENT Exam: Mucous Membranes Dry, Normal External Ear Exam, Normal Oropharynx - Neck Exam Neck exam: Negative for: Lymphadenopathy, Thyromegaly - Respiratory Exam Respiratory Exam: Decreased Breath Sounds, Rhonchi, Wheezes - Cardiovascular Exam Cardiovascular Exam: REGULAR RHYTHM, +S1, +S2 - GI/Abdominal Exam GI & Abdominal Exam: Diminished Bowel Sounds, Distended, Soft. absent: Tenderness - Rectal Exam Rectal Exam: Deferred - Exam Exam: NORMAL INSPECTION - Extremities Exam Extremities exam: Positive for: pedal pulses present. Negative for: calf tenderness, pedal edema, tenderness - Back Exam Back exam: absent: CVA tenderness (L), CVA tenderness (R), paraspinal tenderness - Neurological Exam Neurological exam: Alert, Altered, CN II-XII Intact, Reflexes Normal - Psychiatric Exam Psychiatric exam: Depressed - Skin Skin Exam: Dry, Intact Results - Vital Signs Recent Vital Signs: Last Vital Signs Temp 97.6 F 03/09/17 07:35 Pulse 84 03/09/17 10:00 Resp 22 03/09/17 07:35 BP 149/72 03/09/17 07:35 Pulse Ox 94 L 03/09/17 07:35 - Labs Result Diagrams: 03/09/17 08:13 03/08/17 06:20 Labs: Laboratory Results - last 24 hr 03/08/17 03/08/17 03/09/17 06:20 06:20 08:13 WBC 7.5 RBC 4.16 L Hgb 12.8 Hct 38.4 MCV 92.2 MCH 30.7 MCHC 33.3 RDW 15.8 H Plt Count 118 L MPV 9.8 Neut % (Auto) 88.0 H Lymph % (Auto) 6.8 L [place] % (Auto) 4.7 Eos % (Auto) 0.1 Baso % (Auto) 0.4 Neut # 6.6 Lymph # 0.5 L [place]oup # 0.3 Eos # 0.0 Baso # 0.0 Neutrophils % (Manual) 91 H Band Neutrophils % 1 Lymphocytes % (Manual) 4 L Monocytes % (Manual) 4 Platelet Estimate Slightly decreased L Anisocytosis (manual) Slight ESR 90 H Sodium 139 Potassium 4.1 Chloride 110 H Carbon Dioxide 18 L BUN 22 H Hemoglobin A1c 6.1 Total Creatine Kinase 2154 H Troponin I 0.2750 H* NT-Pro-B Natriuret Pep 2300 H Vitamin B12 304 Folate 19.1 Homocysteine 12.8 TSH 3rd Generation 1.02 Prolactin 23.2 H 03/09/17 08:13 WBC RBC Hgb Hct MCV MCH MCHC RDW Plt Count MPV Neut % (Auto) Lymph % (Auto) Troup % (Auto) Eos % (Auto) Baso % (Auto) Neut # Lymph # Troup # Eos # Baso # Neutrophils % (Manual) Band Neutrophils % Lymphocytes % (Manual) Monocytes % (Manual) Platelet Estimate Anisocytosis (manual) ESR Sodium Potassium Chloride Carbon Dioxide BUN Hemoglobin A1c Total Creatine Kinase Troponin I 0.1060 NT-Pro-B Natriuret Pep Vitamin B12 Folate Homocysteine TSH 3rd Generation Prolactin Assessment & Plan (1) Altered mental status Status: Acute (2) Difficulty walking Status: Acute (3) Elevated brain natriuretic peptide (BNP) level Status: Acute (4) Elevated troponin I level Status: Acute (5) Fever Status: Acute (6) TIA (transient ischemic attack) Status: Acute (7) Arthritis Status: Acute - Assessment and Plan (Free Text) Assessment: Fever with AMS and weakness r/o endocarditis r./o occult abscess recc: CT Chest/ abd / pelvis pulm eval Dr Kaplan may need RAUL- check echo for vegetation follow vanco level min 7 -14 days IV antibiotics as per Dr Sameer Kaplan
[2017-03-09] MEDS: Vancomycin 1 gm/NS 200 ml 1 GM/200 ML BAG IVPB SCH (17:37)
--- NOTE | 2017-03-09 18:16 | CP.PCM.PN ---
Subjective - Date & Time of Evaluation Date of Evaluation: 03/09/17 Time of Evaluation: 18:15 - Subjective Subjective: NO NEW SYMPTOMS FROM NEURO WORK UP ON PROGRESS OOB AND PT ID ON BOARD Objective - Vital Signs/Intake and Output Vital Signs (last 24 hours): Temp Pulse Resp BP Pulse Ox 97.9 F 91 H 20 134/73 94 L 03/09/17 16:14 03/09/17 16:14 03/09/17 16:14 03/09/17 17:44 03/09/17 16:14 Intake and Output: 03/09/17 03/09/17 06:59 18:59 Intake Total 220 Balance 220 - Medications Medications: Current Medications Acetaminophen (Tylenol 325mg Tab) 650 mg PO Q6H PRN PRN Reason: MODERATE PAIN (4-7) Last Admin: 03/08/17 14:45 Dose: 650 mg Albuterol Sulfate (Albuterol 0.042% Inhal Alanis (1.25mg/3ml) Ud) 1.25 mg INH RQ6 [facility] Last Admin: 03/09/17 13:59 Dose: 1.25 mg Amlodipine Besylate (Norvasc) 2.5 mg PO DAILY [facility] Last Admin: 03/09/17 09:32 Dose: 2.5 mg Folic Acid (Folic Acid) 1 mg PO DAILY [facility] Last Admin: 03/09/17 09:33 Dose: 1 mg Furosemide (Lasix) 40 mg IVP DAILY ONE Stop: 03/10/17 10:01 Hydroxyzine HCl (Atarax) 10 mg PO BID [facility] Last Admin: 03/09/17 17:45 Dose: Not Given Piperacillin Sod/Tazobactam (Sod 3.375 gm/ Sodium Chloride) 100 mls @ 200 mls/ hr IVPB Q8H [facility] Last Admin: 03/09/17 11:25 Dose: 200 mls/hr Vancomycin/Sodium Chloride (Vancocin) 1 gm in 200 mls @ 133.333 mls/hr IVPB Q12H [facility] Last Admin: 03/09/17 17:37 Dose: 133.333 mls/hr Montelukast Sodium (Singulair) 10 mg PO HS [facility] Last Admin: 03/08/17 21:49 Dose: 10 mg Pantoprazole Sodium (Protonix Ec Tab) 40 mg PO DAILY [facility] Last Admin: 03/09/17 09:31 Dose: 40 mg - Labs Labs: 03/09/17 08:13 03/08/17 06:20 PT 12.3 SECONDS (9.7-12.2) H 03/07/17 12:13 INR 1.1 03/07/17 12:13 APTT 39 SECONDS (21-34) H 03/07/17 12:13
--- NOTE | 2017-03-09 23:52 | CP.PCM.PN ---
Subjective - Date & Time of Evaluation Date of Evaluation: 03/09/17 Time of Evaluation: 17:50 - Subjective Subjective: Patient more alert. Responding to tretment. Patient seen by Mr Shen. Needs 7 t0 14 days antibiotic therapy. Objective - Vital Signs/Intake and Output Vital Signs (last 24 hours): Temp Pulse Resp BP Pulse Ox 97.9 F 91 H 20 134/73 94 L 03/09/17 16:14 03/09/17 18:00 03/09/17 16:14 03/09/17 17:44 03/09/17 16:14 Intake and Output: 03/09/17 03/10/17 18:59 06:59 Intake Total 450 Output Total 1000 Balance -550 - Medications Medications: Current Medications Acetaminophen (Tylenol 325mg Tab) 650 mg PO Q6H PRN PRN Reason: MODERATE PAIN (4-7) Last Admin: 03/08/17 14:45 Dose: 650 mg Albuterol Sulfate (Albuterol 0.042% Inhal Alanis (1.25mg/3ml) Ud) 1.25 mg INH RQ6 [facility] Last Admin: 03/09/17 13:59 Dose: 1.25 mg Amlodipine Besylate (Norvasc) 2.5 mg PO DAILY [facility] Last Admin: 03/09/17 09:32 Dose: 2.5 mg Folic Acid (Folic Acid) 1 mg PO DAILY [facility] Last Admin: 03/09/17 09:33 Dose: 1 mg Furosemide (Lasix) 40 mg IVP DAILY ONE Stop: 03/10/17 10:01 Hydroxyzine HCl (Atarax) 10 mg PO BID [facility] Last Admin: 03/09/17 17:45 Dose: Not Given Piperacillin Sod/Tazobactam (Sod 3.375 gm/ Sodium Chloride) 100 mls @ 200 mls/ hr IVPB Q8H [facility] Last Admin: 03/09/17 19:49 Dose: 200 mls/hr Vancomycin/Sodium Chloride (Vancocin) 1 gm in 200 mls @ 133.333 mls/hr IVPB Q12H [facility] Last Admin: 03/09/17 17:37 Dose: 133.333 mls/hr Montelukast Sodium (Singulair) 10 mg PO HS [facility] Last Admin: 03/09/17 21:46 Dose: 10 mg Pantoprazole Sodium (Protonix Ec Tab) 40 mg PO DAILY [facility] Last Admin: 03/09/17 09:31 Dose: 40 mg - Labs Labs: 03/09/17 08:13 03/08/17 06:20 PT 12.3 SECONDS (9.7-12.2) H 03/07/17 12:13 INR 1.1 03/07/17 12:13 APTT 39 SECONDS (21-34) H 03/07/17 12:13 - Constitutional Appears: No Acute Distress - Head Exam Head Exam: NORMOCEPHALIC - Eye Exam Eye Exam: Normal appearance Pupil Exam: NORMAL ACCOMODATION - ENT Exam ENT Exam: Normal Exam - Respiratory Exam Respiratory Exam: Decreased Breath Sounds - Cardiovascular Exam Cardiovascular Exam: REGULAR RHYTHM - GI/Abdominal Exam GI & Abdominal Exam: Normal Bowel Sounds - Rectal Exam Rectal Exam: Deferred - Exam Exam: NORMAL INSPECTION - Extremities Exam Extremities Exam: Tenderness - Back Exam Back Exam: paraspinal tenderness - Neurological Exam Neurological Exam: Alert - Psychiatric Exam Psychiatric exam: Depressed - Skin Skin Exam: Dry Assessment and Plan (1) Altered mental status Status: Acute (2) Fever Status: Acute (3) TIA (transient ischemic attack) Status: Acute (4) Arthritis Status: Acute (5) Difficulty walking Status: Acute (6) Elevated brain natriuretic peptide (BNP) level Status: Acute (7) Elevated troponin I level Status: Acute (8) Compression fracture of thoracic spine, non-traumatic Status: Acute
[2017-03-10] MEDS: Albuterol 0.042% Inhal Sol (1.25 mg/3 mL) UD INH SCH ×4 (01:15→19:35)
[2017-03-10] MEDS: Piperacillin/Tazobact 3.375 GM in Sodium Chloride 100 ML IVPB SCH ×3 (02:34→18:12)
[2017-03-10] MEDS: Vancomycin 1 gm/NS 200 ml 1 GM/200 ML BAG IVPB SCH ×2 (05:15→16:34)
--- NOTE | 2017-03-10 07:27 | CP.PCM.PN ---
Subjective - Date & Time of Evaluation Date of Evaluation: 03/10/17 Time of Evaluation: 07:15 - Subjective Subjective: NO NEW SYMPTOMS NO TIA SINCE HE IS ADMITTED NEURO WORK UP IS STABLE APPROPRIATE ANTIBIOTICS Objective - Vital Signs/Intake and Output Vital Signs (last 24 hours): Temp Pulse Resp BP Pulse Ox 99.7 F H 79 20 129/69 94 L 03/10/17 04:00 03/10/17 04:04 03/10/17 04:00 03/10/17 04:00 03/10/17 04:00 Intake and Output: 03/10/17 03/10/17 06:59 18:59 Intake Total 870 Output Total 1000 Balance -130 - Medications Medications: Current Medications Acetaminophen (Tylenol 325mg Tab) 650 mg PO Q6H PRN PRN Reason: MODERATE PAIN (4-7) Last Admin: 03/08/17 14:45 Dose: 650 mg Albuterol Sulfate (Albuterol 0.042% Inhal Alanis (1.25mg/3ml) Ud) 1.25 mg INH RQ6 [facility] Last Admin: 03/10/17 01:15 Dose: 1.25 mg Amlodipine Besylate (Norvasc) 2.5 mg PO DAILY [facility] Last Admin: 03/09/17 09:32 Dose: 2.5 mg Folic Acid (Folic Acid) 1 mg PO DAILY [facility] Last Admin: 03/09/17 09:33 Dose: 1 mg Furosemide (Lasix) 40 mg IVP DAILY ONE Stop: 03/10/17 10:01 Hydroxyzine HCl (Atarax) 10 mg PO BID [facility] Last Admin: 03/09/17 17:45 Dose: Not Given Piperacillin Sod/Tazobactam (Sod 3.375 gm/ Sodium Chloride) 100 mls @ 200 mls/ hr IVPB Q8H [facility] Last Admin: 03/10/17 02:34 Dose: 200 mls/hr Vancomycin/Sodium Chloride (Vancocin) 1 gm in 200 mls @ 133.333 mls/hr IVPB Q12H [facility] Last Admin: 03/10/17 05:15 Dose: 133.333 mls/hr Montelukast Sodium (Singulair) 10 mg PO HS [facility] Last Admin: 03/09/17 21:46 Dose: 10 mg Pantoprazole Sodium (Protonix Ec Tab) 40 mg PO DAILY [facility] Last Admin: 03/09/17 09:31 Dose: 40 mg - Labs Labs: 03/09/17 08:13 03/08/17 06:20 PT 12.3 SECONDS (9.7-12.2) H 03/07/17 12:13 INR 1.1 03/07/17 12:13 APTT 39 SECONDS (21-34) H 03/07/17 12:13
[2017-03-10] MEDS: Pantoprazole 40 mg EC Tab PO SCH (09:42)
--- NOTE | 2017-03-10 10:46 | VASCLAB ---
PROCEDURE: HISTORY: TIA, AMS, Cerebral atherosclerosis COMPARISON: None available. TECHNIQUE: Grayscale and duplex Doppler evaluation of the cervical carotid and vertebral arteries were performed. The common carotid, carotid bifurcations and cervical Internal Carotid Artery (ICA) and proximal External Carotid Artery (ECA) were evaluated. The vertebral arteries were evaluated for gross patency and flow direction. Report prepared by Rafael Martin, T FINDINGS: RIGHT CAROTID ARTERIES: 1. Common Carotid Artery: No significant focal plaque formation of the right common carotid artery. Maximum Peak Systolic velocity: 69.8 cm/sec: End-diastolic velocity 13.3 cm/sec. 2. Carotid Bifurcation: Calcific plaque formation. Maximum Peak Systolic velocity: cm/sec: End-diastolic velocity cm/sec. 3. Internal Carotid Artery: Plaque description: Calcific 3.1. Proximal Segment: Peak systolic velocity 79.3 cm/sec: End-diastolic velocity 25.1 cm/sec - % stenosis 16-49% 3.2. Middle Segment: Peak systolic velocity 85.1 cm/sec: End-diastolic velocity 21.1 cm/sec - % stenosis 3.3. Distal Segment: Peak systolic velocity 57.3 cm/sec: End-diastolic velocity 22.3 cm/sec - % stenosis 4. External Carotid Artery: No significant focal plaque formation. Peak systolic velocity 91.8 cm/sec 5. ICA/CCA Ratio: 1.2 LEFT CAROTID ARTERIES: 1. Common Carotid Artery: No significant focal plaque formation of the left common carotid artery. Maximum Peak Systolic velocity: 72.3 cm/sec: End-diastolic velocity 14.7 cm/sec. 2. Carotid Bifurcation: Calcific plaque formation. Maximum Peak Systolic velocity: 87.2 cm/sec: End-diastolic velocity 14.7 cm/sec. 3. Internal Carotid Artery: Plaque description: Calcific 3.1. Proximal Segment: Peak systolic velocity 67.1 cm/sec: End-diastolic velocity 20.7 cm/sec - % stenosis 0-29% 3.2. Middle Segment: Peak systolic velocity 67.1 cm/sec: End-diastolic velocity 20.7 cm/sec - % stenosis 3.3. Distal Segment: Peak systolic velocity 43.3 cm/sec: End-diastolic velocity 15.1 cm/sec - % stenosis 4. External Carotid Artery: No significant focal plaque formation. Peak systolic velocity 65.9 cm/sec 5. ICA/CCA Ratio: 1.2 VERTEBRAL ARTERIES: 1. Right Vertebral Artery: The right vertebral artery flow direction is antegrade. 2. Left Vertebral Artery: The left vertebral artery flow direction is antegrade. OTHER FINDINGS: 1. Right Brachial Blood pressure: mmHg. 2. Left Brachial Blood pressure: mmHg. IMPRESSION: RIGHT: Duplex scan does suggest 30-49%(closer to lowest end of the range given) non-hemodynamically stenosis of the right internal carotid artery. LEFT: Duplex scan does suggest less than 30% non-hemodynamically stenosis of the left internal carotid artery
--- NOTE | 2017-03-10 14:10 | CARD ---
APPROVED REPORT EKG Measurement Heart [id number] <Conclusion> Sinus tachycardia Pulmonary disease pattern Left anterior fascicular block Abnormal ECG
--- NOTE | 2017-03-10 15:37 | CP.PCM.PN ---
Subjective - Date & Time of Evaluation Date of Evaluation: 03/10/17 Time of Evaluation: 08:00 - Subjective Subjective: st5ill with fever connfused at times may need MRI IV rx in progress Blood c/s positive consider echo Objective - Vital Signs/Intake and Output Vital Signs (last 24 hours): Temp Pulse Resp BP Pulse Ox 99.7 F H 83 20 132/72 94 L 03/10/17 04:00 03/10/17 11:00 03/10/17 04:00 03/10/17 09:43 03/10/17 04:00 Intake and Output: 03/10/17 03/10/17 06:59 18:59 Intake Total 870 Output Total 1000 Balance -130 - Medications Medications: Current Medications Acetaminophen (Tylenol 325mg Tab) 650 mg PO Q6H PRN PRN Reason: MODERATE PAIN (4-7) Last Admin: 03/08/17 14:45 Dose: 650 mg Albuterol Sulfate (Albuterol 0.042% Inhal Alanis (1.25mg/3ml) Ud) 1.25 mg INH RQ6 [facility] Last Admin: 03/10/17 13:58 Dose: 1.25 mg Amlodipine Besylate (Norvasc) 2.5 mg PO DAILY [facility] Last Admin: 03/10/17 09:43 Dose: 2.5 mg Folic Acid (Folic Acid) 1 mg PO DAILY [facility] Last Admin: 03/10/17 09:42 Dose: 1 mg Hydroxyzine HCl (Atarax) 10 mg PO BID [facility] Last Admin: 03/10/17 09:43 Dose: 10 mg Piperacillin Sod/Tazobactam (Sod 3.375 gm/ Sodium Chloride) 100 mls @ 200 mls/ hr IVPB Q8H [facility] Last Admin: 03/10/17 10:44 Dose: 200 mls/hr Vancomycin/Sodium Chloride (Vancocin) 1 gm in 200 mls @ 133.333 mls/hr IVPB Q12H [facility] Last Admin: 03/10/17 05:15 Dose: 133.333 mls/hr Montelukast Sodium (Singulair) 10 mg PO HS [facility] Last Admin: 03/09/17 21:46 Dose: 10 mg Pantoprazole Sodium (Protonix Ec Tab) 40 mg PO DAILY [facility] Last Admin: 03/10/17 09:42 Dose: 40 mg - Labs Labs: 03/09/17 08:13 03/08/17 06:20 PT 12.3 SECONDS (9.7-12.2) H 03/07/17 12:13 INR 1.1 03/07/17 12:13 APTT 39 SECONDS (21-34) H 03/07/17 12:13 - Constitutional Appears: Non-toxic, Chronically Ill - Head Exam Head Exam: NORMOCEPHALIC - Eye Exam Eye Exam: PERRL. absent: Scleral icterus - ENT Exam ENT Exam: Mucous Membranes Dry - Neck Exam Neck Exam: absent: Lymphadenopathy, Thyromegaly - Respiratory Exam Respiratory Exam: Decreased Breath Sounds, Rhonchi - Cardiovascular Exam Cardiovascular Exam: REGULAR RHYTHM, +S1, +S2 - GI/Abdominal Exam GI & Abdominal Exam: Distended, Soft - Rectal Exam Rectal Exam: Deferred - Exam Exam: NORMAL INSPECTION Assessment and Plan (1) Altered mental status Status: Acute (2) Difficulty walking Status: Acute (3) Elevated brain natriuretic peptide (BNP) level Status: Acute (4) Elevated troponin I level Status: Acute (5) Fever Status: Acute (6) TIA (transient ischemic attack) Status: Acute (7) Arthritis Status: Acute
[2017-03-11] MEDS: Linezolid 600 mg in D5W 300 ml 600 MG/300 ML BAG IVPB SCH ×3 (00:28→21:00)
[2017-03-11] MEDS: Albuterol 0.042% Inhal Sol (1.25 mg/3 mL) UD INH SCH ×4 (01:05→20:47)
[2017-03-11] MEDS: Piperacillin/Tazobact 3.375 GM in Sodium Chloride 100 ML IVPB SCH ×3 (03:22→19:00)
[2017-03-11 06:37] LABS: BASO % 0.9 % (0.0-2.0); EOS # 0.2 K/uL (0.0-0.7); HEMOGLOBIN 12.2 g/dL (12.0-18.0); LYMPH # 0.7 K/uL (1.0-4.3); LYMPH % 14.6 % (20.0-40.0); MEAN CELL VOLUME 91.6 fL (80.0-94.0); MEAN CORPUSCULAR HEMOGLOBIN 30.7 pg (27.0-31.0); MEAN CORPUSCULAR HGB CONC 33.6 g/dL (33.0-37.0); MEAN PLATELET VOLUME 9.2 fL (7.2-11.7); MONO # 0.5 K/uL (0.0-0.8); MONO % 10.2 % (0.0-10.0); NEUT # 3.4 K/uL (1.8-7.0); NEUT % 70.3 % (50.0-75.0); RBC 3.97 Mil/uL (4.40-5.90); RED CELL DISTRIBUTION WIDTH 15.7 % (11.5-14.5); WHITE BLOOD COUNT 4.8 K/uL (4.8-10.8)
[2017-03-11] MEDS: Pantoprazole 40 mg EC Tab PO SCH (10:09)
[2017-03-11] MEDS: Potassium Chloride 10 mEq ER Tab PO SCH (17:05)
--- NOTE | 2017-03-11 19:39 | CP.PCM.PN ---
Subjective - Date & Time of Evaluation Date of Evaluation: 03/11/17 Time of Evaluation: 16:40 - Subjective Subjective: More responsive today but still confused at times. Temp 97.6, wbc's 4,800, K 3.4. Sipplemental K ordered for 3 days. Patient has positive blood cultures. He is being treated for pneumonia and sepsis. Stiffness in both legs persists. Will need physical therapy. Objective - Vital Signs/Intake and Output Vital Signs (last 24 hours): Temp Pulse Resp BP Pulse Ox 97.5 F L 73 20 139/73 95 03/11/17 15:15 03/11/17 15:15 03/11/17 15:15 03/11/17 15:15 03/11/17 15:15 Intake and Output: 03/11/17 03/12/17 18:59 06:59 Intake Total 550 Output Total 400 Balance 150 - Medications Medications: Current Medications Acetaminophen (Tylenol 325mg Tab) 650 mg PO Q6H PRN PRN Reason: MODERATE PAIN (4-7) Last Admin: 03/08/17 14:45 Dose: 650 mg Albuterol Sulfate (Albuterol 0.042% Inhal Alanis (1.25mg/3ml) Ud) 1.25 mg INH RQ6 [facility] Last Admin: 03/11/17 13:30 Dose: 1.25 mg Amlodipine Besylate (Norvasc) 2.5 mg PO DAILY [facility] Last Admin: 03/11/17 10:09 Dose: 2.5 mg Folic Acid (Folic Acid) 1 mg PO DAILY [facility] Last Admin: 03/11/17 10:10 Dose: 1 mg Hydroxyzine HCl (Atarax) 10 mg PO BID [facility] Last Admin: 03/11/17 17:48 Dose: 10 mg Piperacillin Sod/Tazobactam (Sod 3.375 gm/ Sodium Chloride) 100 mls @ 200 mls/ hr IVPB Q8H [facility] Last Admin: 03/11/17 11:53 Dose: 200 mls/hr Linezolid (Zyvox 600mg/300ml D5w) 600 mg in 300 mls @ 200 mls/hr IVPB Q12 [facility] Last Admin: 03/11/17 10:11 Dose: 200 mls/hr Montelukast Sodium (Singulair) 10 mg PO HS [facility] Last Admin: 03/10/17 22:38 Dose: 10 mg Pantoprazole Sodium (Protonix Ec Tab) 40 mg PO DAILY [facility] Last Admin: 03/11/17 10:09 Dose: 40 mg Potassium Chloride (Klor-Con 10) 10 meq PO BRK [facility] Stop: 03/14/17 16:01 Last Admin: 03/11/17 17:05 Dose: 10 meq - Labs Labs: 03/11/17 06:29 03/11/17 06:29 PT 12.3 SECONDS (9.7-12.2) H 03/07/17 12:13 INR 1.1 03/07/17 12:13 APTT 39 SECONDS (21-34) H 03/07/17 12:13 - Constitutional Appears: No Acute Distress - Head Exam Head Exam: NORMAL INSPECTION - Eye Exam Eye Exam: Normal appearance Pupil Exam: NORMAL ACCOMODATION - ENT Exam ENT Exam: Normal Oropharynx - Neck Exam Neck Exam: Normal Inspection - Respiratory Exam Respiratory Exam: Decreased Breath Sounds - Cardiovascular Exam Cardiovascular Exam: REGULAR RHYTHM - GI/Abdominal Exam GI & Abdominal Exam: Normal Bowel Sounds - Rectal Exam Rectal Exam: Deferred - Exam Exam: NORMAL INSPECTION - Extremities Exam Extremities Exam: Tenderness - Back Exam Back Exam: paraspinal tenderness - Neurological Exam Neurological Exam: Altered - Psychiatric Exam Psychiatric exam: Depressed - Skin Skin Exam: Dry Assessment and Plan (1) Altered mental status Status: Acute (2) Fever Status: Acute (3) TIA (transient ischemic attack) Status: Acute (4) Arthritis Status: Acute (5) Difficulty walking Status: Acute (6) Elevated brain natriuretic peptide (BNP) level Status: Acute (7) Elevated troponin I level Status: Acute (8) Compression fracture of thoracic spine, non-traumatic Status: Acute
[2017-03-11] MEDS ORDERED: Linezolid 600 mg in D5W 300 ml 600 MG/300 ML BAG IVPB SCH (23:59)
[2017-03-12] MEDS: Albuterol 0.042% Inhal Sol (1.25 mg/3 mL) UD INH SCH ×4 (01:56→19:36)
[2017-03-12] MEDS: Piperacillin/Tazobact 3.375 GM in Sodium Chloride 100 ML IVPB SCH ×3 (02:11→18:04)
[2017-03-12] MEDS: Potassium Chloride 10 mEq ER Tab PO SCH (08:32)
[2017-03-12] MEDS: Pantoprazole 40 mg EC Tab PO SCH (09:32)
[2017-03-12] MEDS: Linezolid 600 mg in D5W 300 ml 600 MG/300 ML BAG IVPB SCH ×2 (09:33→21:05)
--- NOTE | 2017-03-12 16:13 | CP.PCM.PN ---
Subjective - Date & Time of Evaluation Date of Evaluation: 03/12/17 Time of Evaluation: 07:00 - Subjective Subjective: slowly improving c/o pain and weakness in Lower extrem denies chest pain blood c/s- corynebacterium is possible contaminant ? cont iv rx cardio follow up and repeat cxr Objective - Vital Signs/Intake and Output Vital Signs (last 24 hours): Temp Pulse Resp BP Pulse Ox 98.4 F 58 L 20 172/81 H 97 03/12/17 04:38 03/12/17 08:23 03/12/17 04:38 03/12/17 04:38 03/11/17 23:40 Intake and Output: 03/12/17 03/12/17 06:59 18:59 Output Total 600 Balance -600 - Medications Medications: Current Medications Acetaminophen (Tylenol 325mg Tab) 650 mg PO Q6H PRN PRN Reason: MODERATE PAIN (4-7) Last Admin: 03/08/17 14:45 Dose: 650 mg Albuterol Sulfate (Albuterol 0.042% Inhal Alanis (1.25mg/3ml) Ud) 1.25 mg INH RQ6 [facility] Last Admin: 03/12/17 14:08 Dose: 1.25 mg Amlodipine Besylate (Norvasc) 2.5 mg PO DAILY [facility] Last Admin: 03/12/17 09:32 Dose: 2.5 mg Folic Acid (Folic Acid) 1 mg PO DAILY [facility] Last Admin: 03/12/17 09:32 Dose: 1 mg Hydroxyzine HCl (Atarax) 10 mg PO BID [facility] Last Admin: 03/11/17 17:48 Dose: 10 mg Piperacillin Sod/Tazobactam (Sod 3.375 gm/ Sodium Chloride) 100 mls @ 200 mls/ hr IVPB Q8H [facility] Last Admin: 03/12/17 11:51 Dose: 200 mls/hr Linezolid (Zyvox 600mg/300ml D5w) 600 mg in 300 mls @ 200 mls/hr IVPB Q12 [facility] Last Admin: 03/12/17 09:33 Dose: 200 mls/hr Montelukast Sodium (Singulair) 10 mg PO HS [facility] Last Admin: 03/11/17 21:31 Dose: 10 mg Pantoprazole Sodium (Protonix Ec Tab) 40 mg PO DAILY [facility] Last Admin: 03/12/17 09:32 Dose: 40 mg Potassium Chloride (Klor-Con 10) 10 meq PO BRK [facility] Stop: 03/14/17 16:01 Last Admin: 03/12/17 08:32 Dose: 10 meq - Labs Labs: 03/11/17 06:29 03/11/17 06:29 PT 12.3 SECONDS (9.7-12.2) H 03/07/17 12:13 INR 1.1 03/07/17 12:13 APTT 39 SECONDS (21-34) H 03/07/17 12:13 - Constitutional Appears: Non-toxic, Cachectic, Chronically Ill - Head Exam Head Exam: NORMOCEPHALIC - Eye Exam Eye Exam: PERRL. absent: Scleral icterus - ENT Exam ENT Exam: Mucous Membranes Dry, Normal External Ear Exam - Neck Exam Neck Exam: absent: Lymphadenopathy - Respiratory Exam Respiratory Exam: Decreased Breath Sounds, Rales, Rhonchi - Cardiovascular Exam Cardiovascular Exam: REGULAR RHYTHM, +S1, +S2 - GI/Abdominal Exam GI & Abdominal Exam: Distended, Soft. absent: Tenderness - Rectal Exam Rectal Exam: Deferred - Exam Exam: NORMAL INSPECTION - Extremities Exam Extremities Exam: absent: Pedal Edema - Back Exam Back Exam: absent: CVA tenderness (L), CVA tenderness (R) - Neurological Exam Neurological Exam: Alert, Awake, Oriented x3 - Psychiatric Exam Psychiatric exam: Normal Mood - Skin Skin Exam: Dry Assessment and Plan (1) Altered mental status Status: Acute (2) Difficulty walking Status: Acute (3) Elevated brain natriuretic peptide (BNP) level Status: Acute (4) Elevated troponin I level Status: Acute (5) Fever Status: Acute (6) TIA (transient ischemic attack) Status: Acute (7) Arthritis Status: Acute
--- NOTE | 2017-03-12 21:37 | CP.PCM.PN ---
Subjective - Date & Time of Evaluation Date of Evaluation: 03/12/17 Time of Evaluation: 07:30 - Subjective Subjective: Patient has no SOB or chest pain. Alert, oriented, in no respiratory distress. Echo: normal LV wall motion with grade I diastolic dysfunction. Objective - Vital Signs/Intake and Output Vital Signs (last 24 hours): Temp Pulse Resp BP Pulse Ox 97.7 F 69 20 119/64 94 L 03/12/17 15:41 03/12/17 15:41 03/12/17 15:41 03/12/17 15:41 03/12/17 15:41 - Medications Medications: Current Medications Acetaminophen (Tylenol 325mg Tab) 650 mg PO Q6H PRN PRN Reason: MODERATE PAIN (4-7) Last Admin: 03/08/17 14:45 Dose: 650 mg Amlodipine Besylate (Norvasc) 2.5 mg PO DAILY [facility] Last Admin: 03/12/17 09:32 Dose: 2.5 mg Folic Acid (Folic Acid) 1 mg PO DAILY [facility] Last Admin: 03/12/17 09:32 Dose: 1 mg Hydroxyzine HCl (Atarax) 10 mg PO BID [facility] Last Admin: 03/12/17 18:04 Dose: 10 mg Piperacillin Sod/Tazobactam (Sod 3.375 gm/ Sodium Chloride) 100 mls @ 200 mls/ hr IVPB Q8H [facility] Last Admin: 03/12/17 18:04 Dose: 200 mls/hr Linezolid (Zyvox 600mg/300ml D5w) 600 mg in 300 mls @ 200 mls/hr IVPB Q12 [facility] Last Admin: 03/12/17 21:05 Dose: 200 mls/hr Montelukast Sodium (Singulair) 10 mg PO HS [facility] Last Admin: 03/12/17 21:04 Dose: 10 mg Pantoprazole Sodium (Protonix Ec Tab) 40 mg PO DAILY [facility] Last Admin: 03/12/17 09:32 Dose: 40 mg Potassium Chloride (Klor-Con 10) 10 meq PO BRK [facility] Stop: 03/14/17 16:01 Last Admin: 03/12/17 08:32 Dose: 10 meq - Labs Labs: 03/11/17 06:29 03/11/17 06:29 PT 12.3 SECONDS (9.7-12.2) H 03/07/17 12:13 INR 1.1 03/07/17 12:13 APTT 39 SECONDS (21-34) H 03/07/17 12:13 - Constitutional Appears: No Acute Distress, Chronically Ill - Head Exam Head Exam: NORMAL INSPECTION - Eye Exam Eye Exam: Normal appearance - ENT Exam ENT Exam: Normal Exam - Neck Exam Neck Exam: Normal Inspection - Respiratory Exam Respiratory Exam: Clear to Ausculation Bilateral - Cardiovascular Exam Cardiovascular Exam: REGULAR RHYTHM - GI/Abdominal Exam GI & Abdominal Exam: Soft, Normal Bowel Sounds - Rectal Exam Rectal Exam: Deferred - Extremities Exam Extremities Exam: Normal Inspection - Back Exam Back Exam: NORMAL INSPECTION - Neurological Exam Neurological Exam: Alert, Awake, Oriented x3 - Psychiatric Exam Psychiatric exam: Anxious - Skin Skin Exam: Dry, Intact, Normal Color, Warm Assessment and Plan (1) TIA (transient ischemic attack) Status: Acute (2) Elevated troponin I level Status: Resolved (3) Elevated brain natriuretic peptide (BNP) level Status: Resolved
--- NOTE | 2017-03-12 21:44 | CP.PCM.PN ---
Subjective - Date & Time of Evaluation Date of Evaluation: 03/12/17 Time of Evaluation: 17:20 - Subjective Subjective: EEG REPORT: BILATERAL SLOW ACTIVITIES. NO PAROXYSMAL ACTIVITIES OR FOCAL SLOWING NOTED. PHOTIC STIMULATION NO EVOKED RESPONSES. THIS IS CONSISTENT WITH BILATERAL CEREBREAL DYSFUNCTION. CORRELATE CLINICALLY AND RADIOLOGICALLY Objective - Vital Signs/Intake and Output Vital Signs (last 24 hours): Temp Pulse Resp BP Pulse Ox 97.7 F 69 20 119/64 94 L 03/12/17 15:41 03/12/17 15:41 03/12/17 15:41 03/12/17 15:41 03/12/17 15:41 - Medications Medications: Current Medications Acetaminophen (Tylenol 325mg Tab) 650 mg PO Q6H PRN PRN Reason: MODERATE PAIN (4-7) Last Admin: 03/08/17 14:45 Dose: 650 mg Amlodipine Besylate (Norvasc) 2.5 mg PO DAILY [facility] Last Admin: 03/12/17 09:32 Dose: 2.5 mg Folic Acid (Folic Acid) 1 mg PO DAILY [facility] Last Admin: 03/12/17 09:32 Dose: 1 mg Hydroxyzine HCl (Atarax) 10 mg PO BID [facility] Last Admin: 03/12/17 18:04 Dose: 10 mg Piperacillin Sod/Tazobactam (Sod 3.375 gm/ Sodium Chloride) 100 mls @ 200 mls/ hr IVPB Q8H [facility] Last Admin: 03/12/17 18:04 Dose: 200 mls/hr Linezolid (Zyvox 600mg/300ml D5w) 600 mg in 300 mls @ 200 mls/hr IVPB Q12 [facility] Last Admin: 03/12/17 21:05 Dose: 200 mls/hr Montelukast Sodium (Singulair) 10 mg PO HS [facility] Last Admin: 03/12/17 21:04 Dose: 10 mg Pantoprazole Sodium (Protonix Ec Tab) 40 mg PO DAILY [facility] Last Admin: 03/12/17 09:32 Dose: 40 mg Potassium Chloride (Klor-Con 10) 10 meq PO BRK [facility] Stop: 03/14/17 16:01 Last Admin: 03/12/17 08:32 Dose: 10 meq - Labs Labs: 03/11/17 06:29 03/11/17 06:29 PT 12.3 SECONDS (9.7-12.2) H 03/07/17 12:13 INR 1.1 03/07/17 12:13 APTT 39 SECONDS (21-34) H 03/07/17 12:13
--- NOTE | 2017-03-12 22:24 | CP.PCM.PN ---
Subjective - Date & Time of Evaluation Date of Evaluation: 03/12/17 Time of Evaluation: 12:35 - Subjective Subjective: Patient complains of weakness in the lower extremities. He was evaluated by Dr Shen. Will repeat labs. Objective - Vital Signs/Intake and Output Vital Signs (last 24 hours): Temp Pulse Resp BP Pulse Ox 97.7 F 69 20 119/64 94 L 03/12/17 15:41 03/12/17 15:41 03/12/17 15:41 03/12/17 15:41 03/12/17 15:41 - Medications Medications: Current Medications Acetaminophen (Tylenol 325mg Tab) 650 mg PO Q6H PRN PRN Reason: MODERATE PAIN (4-7) Last Admin: 03/08/17 14:45 Dose: 650 mg Amlodipine Besylate (Norvasc) 2.5 mg PO DAILY [facility] Last Admin: 03/12/17 09:32 Dose: 2.5 mg Folic Acid (Folic Acid) 1 mg PO DAILY [facility] Last Admin: 03/12/17 09:32 Dose: 1 mg Hydroxyzine HCl (Atarax) 10 mg PO BID [facility] Last Admin: 03/12/17 18:04 Dose: 10 mg Piperacillin Sod/Tazobactam (Sod 3.375 gm/ Sodium Chloride) 100 mls @ 200 mls/ hr IVPB Q8H [facility] Last Admin: 03/12/17 18:04 Dose: 200 mls/hr Linezolid (Zyvox 600mg/300ml D5w) 600 mg in 300 mls @ 200 mls/hr IVPB Q12 [facility] Last Admin: 03/12/17 21:05 Dose: 200 mls/hr Montelukast Sodium (Singulair) 10 mg PO HS [facility] Last Admin: 03/12/17 21:04 Dose: 10 mg Pantoprazole Sodium (Protonix Ec Tab) 40 mg PO DAILY [facility] Last Admin: 03/12/17 09:32 Dose: 40 mg Potassium Chloride (Klor-Con 10) 10 meq PO BRK [facility] Stop: 03/14/17 16:01 Last Admin: 03/12/17 08:32 Dose: 10 meq - Labs Labs: 03/11/17 06:29 03/11/17 06:29 PT 12.3 SECONDS (9.7-12.2) H 06/30/17 12:13 INR 1.1 03/07/17 12:13 APTT 39 SECONDS (21-34) H 03/07/17 12:13 - Constitutional Appears: No Acute Distress - Head Exam Head Exam: NORMAL INSPECTION - Eye Exam Eye Exam: Normal appearance Pupil Exam: NORMAL ACCOMODATION - ENT Exam ENT Exam: Normal Exam - Respiratory Exam Respiratory Exam: Decreased Breath Sounds - Cardiovascular Exam Cardiovascular Exam: REGULAR RHYTHM - GI/Abdominal Exam GI & Abdominal Exam: Normal Bowel Sounds - Rectal Exam Rectal Exam: Deferred - Exam Exam: NORMAL INSPECTION - Extremities Exam Extremities Exam: Tenderness - Back Exam Back Exam: NORMAL INSPECTION - Neurological Exam Neurological Exam: Awake - Psychiatric Exam Psychiatric exam: Depressed - Skin Skin Exam: Dry Assessment and Plan (1) Altered mental status Status: Acute (2) Fever Status: Acute (3) TIA (transient ischemic attack) Status: Acute (4) Arthritis Status: Acute (5) Difficulty walking Status: Acute (6) Elevated brain natriuretic peptide (BNP) level Status: Resolved (7) Elevated troponin I level Status: Resolved (8) Compression fracture of thoracic spine, non-traumatic Status: Acute
--- NOTE | 2017-03-13 00:10 | CARD ---
APPROVED REPORT EXAM: Two-dimensional and M-mode echocardiogram with Doppler and color Doppler. Other Information Quality : Technically LimitedRhythm : NSR INDICATION CVA/TIA Congestive Heart Failure [place] Fever 2D DIMENSIONS LVOT Diameter2.1 (1.8-2.4cm) M-Mode DIMENSIONS Left Atrium (MM)4.45 (2.5-4.0cm)Aortic Root3.01 (2.2-3.7cm) Aortic Cusp Exc.1.17 (1.5-2.0cm) Aortic Valve AoV Peak Xmqynfzr455.2cm/sAoV VTI62.2cmAO Peak GR.30mmHg LVOT Peak Wjwxsgux85.1cm/sLVOT VTI21.71cmAO Mean GR.15mmHg MIC (VMAX)1.56jn1CHV (VTI)1.25cm2 Mitral Valve MV E Gwmpjvnl86.0cm/sMV A Vnxthvxl25.8cm/sE/A ratio0.8 TDI E/Lateral E'0.0E/Medial E'0.0 Tricuspid Valve TR Peak Llpodvmc056eq/sTR Peak Gr.84zsKaMPVM39ugEa LEFT VENTRICLE The left ventricle is grossly normal size. Left ventricle systolic function is grossly normal. There is normal LV segmental wall motion. Transmitral Doppler flow pattern is abnormal.Grade I-abnormal relaxation pattern. No left ventricle thrombus noted on this study. RIGHT VENTRICLE The right ventricle is normal size. The right ventricular systolic function is normal. ATRIA The left atrium is mildly dilated. The right atrium size is normal. AORTIC VALVE The aortic valve is mildly to moderately sclerotic. No aortic regurgitation is present. There is moderate valvular aortic stenosis. Calculated aortic valve area is 1.2 cm2 with maximum pressure gradient of 30 mmHg and mean pressure gradient of 15 mmHg. No discrete vegetations noted. MITRAL VALVE Mitral annular calcification is mild to moderate. There is no evidence of mitral valve prolapse. There is no mitral valve stenosis. Mitral regurgitation is mild. TRICUSPID VALVE The tricuspid valve is normal in structure. There is mild to moderate tricuspid regurgitation. Right ventricular systolic pressure is estimated at less than 30 mmHg. There is no pulmonary hypertension. There is no tricuspid valve prolapse or vegetation. There is no tricuspid valve stenosis. PULMONIC VALVE The pulmonic valve is not well visualized. There is no pulmonic valvular regurgitation. GREAT VESSELS The aortic root is normal in size. The IVC is normal in size and collapses >50% with inspiration. PERICARDIAL EFFUSION There is no pericardial effusion. There is small left pleural effusion. <Conclusion> Technically limited study. The left ventricle is grossly normal size. Left ventricle systolic function appears grossly normal. Transmitral Doppler flow pattern is abnormal.Grade I-abnormal relaxation pattern. The right ventricle is normal size. The right ventricular systolic function looks normal. The left atrium is mildly dilated. There is moderate valvular aortic stenosis. Calculated aortic valve area is 1.2 cm2 with maximum pressure gradient of 30 mmHg and mean pressure gradient of 15 mmHg. The right atrium size is normal. Mitral regurgitation is mild. There is mild to moderate tricuspid regurgitation.
[2017-03-13] MEDS: Piperacillin/Tazobact 3.375 GM in Sodium Chloride 100 ML IVPB SCH ×3 (02:16→18:03)
[2017-03-13 07:17] LABS: BASO % 0.8 % (0.0-2.0); EOS # 0.3 K/uL (0.0-0.7); EOS % 5.6 % (0.0-4.0); HEMOGLOBIN 12.8 g/dL (12.0-18.0); LYMPH # 0.9 K/uL (1.0-4.3); LYMPH % 18.8 % (20.0-40.0); MEAN CELL VOLUME 91.3 fL (80.0-94.0); MEAN CORPUSCULAR HEMOGLOBIN 31.3 pg (27.0-31.0); MEAN CORPUSCULAR HGB CONC 34.3 g/dL (33.0-37.0); MEAN PLATELET VOLUME 8.5 fL (7.2-11.7); MONO # 0.6 K/uL (0.0-0.8); MONO % 11.3 % (0.0-10.0); NEUT # 3.2 K/uL (1.8-7.0); NEUT % 63.5 % (50.0-75.0); RBC 4.08 Mil/uL (4.40-5.90); RED CELL DISTRIBUTION WIDTH 15.7 % (11.5-14.5)
[2017-03-13 07:49] LABS: GFR AFRICAN-AMERICAN > 60; GFR NON-AFRICAN AMERICAN > 60
[2017-03-13 07:50] LABS: BLOOD UREA NITROGEN 11 mg/dL (9-20); CALCIUM 8.2 mg/dl (8.6-10.4)
[2017-03-13] MEDS: Potassium Chloride 10 mEq ER Tab PO SCH (08:26)
[2017-03-13] MEDS: Pantoprazole 40 mg EC Tab PO SCH (10:20)
[2017-03-13] MEDS: Linezolid 600 mg in D5W 300 ml 600 MG/300 ML BAG IVPB SCH (10:23)
--- NOTE | 2017-03-13 15:28 | RAD ---
HISTORY: chf,pneumonia COMPARISON: Chest x-ray performed 03/07/17 TECHNIQUE: Chest PA and lateral FINDINGS: LUNGS: Right greater than left atelectasis or pneumonia. Mild pulmonary venous congestion. Please note that chest x-ray has limited sensitivity for the detection of pulmonary masses. PLEURA: No significant pleural effusion identified. No definite pneumothorax . CARDIOVASCULAR: Borderline cardiomegaly. Dense atherosclerotic calcifications of an ectatic aorta. OSSEOUS STRUCTURES: Osseous demineralization. Degenerative changes of the spine and shoulders. Kyphosis. Acromioclavicular arthropathy. VISUALIZED UPPER ABDOMEN: Unremarkable. OTHER FINDINGS: None. IMPRESSION: Right greater than left lower lobe streaky opacities may represent atelectasis or pneumonia. Mild pulmonary venous congestion. Borderline cardiomegaly.
[2017-03-13 16:13] VITALS: BP 134/70; RESP 20; TEMP 97.4
[2017-03-13 16:32] VITALS: PULSE 63
--- NOTE | 2017-03-13 17:30 | CP.PCM.PN ---
Subjective - Date & Time of Evaluation Date of Evaluation: 03/13/17 Time of Evaluation: 17:27 - Subjective Subjective: 86 Y/O MALE SEEN AND EXAMINED TODAY BY DR CLEMONS, PT WITH PMHX , ADMITTED FOR WORSENING SLURRED SPEECH SINCE YESTERDAY, NEW ONSET RIGHT SIDED UPPER EXTREMITY WEAKNESS, NEW ONSET RIGHT SIDED LEG WEAKNESS. FAMILY REPORTS PT BASELINE AAO X 3 AND THAT HE HAS HAD DIFFICULTY WALKING DUE TO KNEE PAIN, BL KNEE ARTHRITIS. Objective - Vital Signs/Intake and Output Vital Signs (last 24 hours): Temp Pulse Resp BP Pulse Ox 97.4 F L 63 20 134/70 96 03/13/17 15:18 03/13/17 16:00 03/13/17 15:18 03/13/17 15:18 03/13/17 15:18 Intake and Output: 03/13/17 03/13/17 06:59 18:59 Output Total 250 Balance -250 - Medications Medications: Current Medications Acetaminophen (Tylenol 325mg Tab) 650 mg PO Q6H PRN PRN Reason: MODERATE PAIN (4-7) Last Admin: 03/08/17 14:45 Dose: 650 mg Amlodipine Besylate (Norvasc) 2.5 mg PO DAILY [facility] Last Admin: 03/13/17 10:21 Dose: 2.5 mg Folic Acid (Folic Acid) 1 mg PO DAILY [facility] Last Admin: 03/13/17 10:20 Dose: 1 mg Hydroxyzine HCl (Atarax) 10 mg PO BID [facility] Last Admin: 03/13/17 10:20 Dose: 10 mg Piperacillin Sod/Tazobactam (Sod 3.375 gm/ Sodium Chloride) 100 mls @ 200 mls/ hr IVPB Q8H [facility] Last Admin: 03/13/17 11:49 Dose: 200 mls/hr Linezolid (Zyvox 600mg/300ml D5w) 600 mg in 300 mls @ 200 mls/hr IVPB Q12 [facility] Last Admin: 03/13/17 10:23 Dose: 200 mls/hr Montelukast Sodium (Singulair) 10 mg PO HS [facility] Last Admin: 03/12/17 21:04 Dose: 10 mg Pantoprazole Sodium (Protonix Ec Tab) 40 mg PO DAILY [facility] Last Admin: 03/13/17 10:20 Dose: 40 mg Potassium Chloride (Klor-Con 10) 10 meq PO BRK [facility] Stop: 03/14/17 16:01 Last Admin: 03/13/17 08:26 Dose: 10 meq - Labs Labs: 03/13/17 07:12 03/13/17 07:12 PT 12.3 SECONDS (9.7-12.2) H 03/07/17 12:13 INR 1.1 03/07/17 12:13 APTT 39 SECONDS (21-34) H 03/07/17 12:13
--- NOTE | 2017-03-13 21:49 | CP.PCM.DIS ---
Provider - Provider Date of Admission: 03/07/17 13:38 Attending physician: Chucho Irvin MD Time Spent in preparation of Discharge (in minutes): 26 Diagnosis - Discharge Diagnosis (1) Altered mental status Status: Acute (2) Fever Status: Acute (3) TIA (transient ischemic attack) Status: Acute (4) Arthritis Status: Acute (5) Difficulty walking Status: Acute (6) Elevated brain natriuretic peptide (BNP) level Status: Resolved (7) Elevated troponin I level Status: Resolved (8) Compression fracture of thoracic spine, non-traumatic Status: Acute Hospital Course - Lab Results Lab Results: Micro Results 03/13/17 14:50 Sputum Gram Stain - Final 03/07/17 14:00 Urine,Crystal Urine Culture - Final No Growth (<1,000 CFU/ML) Most Recent Lab Values WBC 5.0 K/uL (4.8-10.8) 03/13/17 07:12 RBC 4.08 Mil/uL (4.40-5.90) L 03/13/17 07:12 Hgb 12.8 g/dL (12.0-18.0) 03/13/17 07:12 Hct 37.2 % (35.0-51.0) 03/13/17 07:12 MCV 91.3 fL (80.0-94.0) 03/13/17 07:12 MCH 31.3 pg (27.0-31.0) H 03/13/17 07:12 MCHC 34.3 g/dL (33.0-37.0) 03/13/17 07:12 RDW 15.7 % (11.5-14.5) H 03/13/17 07:12 Plt Count 293 K/uL (130-400) D 03/13/17 07:12 MPV 8.5 fL (7.2-11.7) 03/13/17 07:12 Neut % (Auto) 63.5 % (50.0-75.0) 03/13/17 07:12 Lymph % (Auto) 18.8 % (20.0-40.0) L 03/13/17 07:12 [place] % (Auto) 11.3 % (0.0-10.0) H 03/13/17 07:12 Eos % (Auto) 5.6 % (0.0-4.0) H 03/13/17 07:12 Baso % (Auto) 0.8 % (0.0-2.0) 03/13/17 07:12 Neut # 3.2 K/uL (1.8-7.0) 03/13/17 07:12 Lymph # 0.9 K/uL (1.0-4.3) L 03/13/17 07:12 [place] # 0.6 K/uL (0.0-0.8) 03/13/17 07:12 Eos # 0.3 K/uL (0.0-0.7) 03/13/17 07:12 Baso # 0.0 K/uL (0.0-0.2) 03/13/17 07:12 Neutrophils % (Manual) 91 % (50-75) H 03/09/17 08:13 Band Neutrophils % 1 % (0-2) 03/09/17 08:13 Lymphocytes % (Manual) 4 % (20-40) L 03/09/17 08:13 Monocytes % (Manual) 4 % (0-10) 03/09/17 08:13 Platelet Estimate Slightly decreased (NORMAL) L 03/09/17 08:13 RBC Morphology Normal 03/08/17 06:20 Anisocytosis (manual) Slight 03/09/17 08:13 ESR 90 mm/hr (0-15) H 03/09/17 08:13 PT 12.3 SECONDS (9.7-12.2) H 03/07/17 12:13 INR 1.1 03/07/17 12:13 APTT 39 SECONDS (21-34) H 03/07/17 12:13 Puncture Site Rb 03/07/17 17:40 pCO2 27 mm/Hg (35-45) L 03/07/17 17:40 pO2 75 mm/Hg (80-100) L 03/07/17 17:40 HCO3 19.3 mmol/L (21-28) L 03/07/17 17:40 ABG pH 7.39 (7.35-7.45) 03/07/17 17:40 ABG Total CO2 17.1 mmol/L (22-28) L 03/07/17 17:40 ABG O2 Saturation 98.2 % (95-98) H 03/07/17 17:40 ABG Base Excess -7.1 mmol/L (-2.0-3.0) L 03/07/17 17:40 ABG Hemoglobin 13.7 g/dL (11.7-17.4) 03/07/17 17:40 ABG Carboxyhemoglobin 1.7 % (0.5-1.5) H 03/07/17 17:40 POC ABG HHb (Measured) 1.7 % (0.0-5.0) 03/07/17 17:40 ABG Methemoglobin 1.4 % (0.0-3.0) 03/07/17 17:40 [place] Test N 03/07/17 17:40 VBG pH 7.33 (7.32-7.43) 03/07/17 14:47 VBG pCO2 31 mmHg (40-60) L 03/07/17 14:47 VBG HCO3 16.6 mmol/L 03/07/17 14:47 VBG Total CO2 17.3 mmol/L (22-28) L 03/07/17 14:47 VBG O2 Sat (Calc) 51.9 % (40-65) 03/07/17 14:47 VBG Base Excess -8.4 mmol/L (0.0-2.0) L 03/07/17 14:47 VBG Potassium 3.3 mmol/L (3.6-5.2) L 03/07/17 14:47 A-a O2 Difference 91.0 mm/Hg 03/07/17 17:40 Respiratory Index 1.2 03/07/17 17:40 Hgb O2 Saturation 95.2 % (95.0-98.0) 03/07/17 17:40 Sodium 136.0 mmol/l (132-148) 03/07/17 14:47 Chloride 111.0 mmol/L (98-107) H 03/07/17 14:47 Glucose 140 mg/dl (75-110) H 03/07/17 14:47 Lactate 1.9 mmol/L (0.7-2.1) 03/07/17 14:47 Liter Flow 2.0 03/07/17 17:40 FiO2 28.0 % 03/07/17 17:40 Sodium 141 mmol/L (132-148) 03/13/17 07:12 Potassium 3.6 mmol/L (3.6-5.2) 03/13/17 07:12 Chloride 111 mmol/L (98-107) H 03/13/17 07:12 Carbon Dioxide 23 mmol/L (22-30) 03/13/17 07:12 Anion Gap 11 (10-20) 03/13/17 07:12 BUN 11 mg/dL (9-20) 03/13/17 07:12 Creatinine 0.8 MG/DL (0.8-1.5) 03/13/17 07:12 Est GFR ( Amer) > 60 03/13/17 07:12 Est GFR (Non-Af Amer) > 60 03/13/17 07:12 POC Glucose (mg/dL) 92 mg/dL (65-110) 03/13/17 06:15 Random Glucose 96 mg/dL (75-110) 03/13/17 07:12 Hemoglobin A1c 6.1 % (4.2-6.5) 03/08/17 06:20 Calcium 8.2 mg/dl (8.6-10.4) L 03/13/17 07:12 Phosphorus 2.0 mg/dL (2.5-4.5) L 03/07/17 12:46 Magnesium 2.0 mg/dL (1.6-2.3) 03/07/17 12:46 Total Bilirubin 1.7 mg/dL (0.2-1.3) H 03/07/17 12:13 AST 120 U/L (17-59) H 03/07/17 12:13 ALT 71 U/L (21-72) 03/07/17 12:13 Alkaline Phosphatase 86 U/L (38-126) 03/07/17 12:13 Total Creatine Kinase 2154 U/L (55-170) H 03/08/17 06:20 Troponin I 0.1060 ng/mL (0.00-0.120) 03/09/17 08:13 Cardiac CRP 359.0 mg/L H 03/08/17 12:00 NT-Pro-B Natriuret Pep 2300 pg/mL (0-900) H 03/08/17 06:20 Total Protein 7.7 g/dL (6.3-8.3) 03/07/17 12:13 Albumin 3.4 g/dL (3.5-5.0) L 03/07/17 12:13 Globulin 4.2 gm/dL (2.2-3.9) H 03/07/17 12:13 Albumin/Globulin Ratio 0.8 (1.0-2.1) L 03/07/17 12:13 Triglycerides 91 mg/dL (0-149) 03/07/17 12:13 Cholesterol 157 mg/dL (0-199) 03/07/17 12:13 LDL Cholesterol Direct 58 mg/dL (0-129) 03/07/17 12:13 HDL Cholesterol 46 mg/dL (30-70) 03/07/17 12:13 Prostate Specific Ag 3.08 ng/mL (0.00-4.0) 03/11/17 06:29 Vitamin B12 304 pg/mL (239-931) 03/08/17 06:20 Folate 19.1 ng/mL 03/08/17 06:20 Homocysteine 12.8 umol/L (6.6-14.8) 03/08/17 06:20 Procalcitonin 7.24 NG/ML (0.19-0.49) H 03/09/17 21:02 Free T4 1.27 ng/dL (0.78-2.19) 03/08/17 06:20 TSH 3rd Generation 1.02 mIU/L (0.46-4.68) 03/08/17 06:20 Prolactin 23.2 ng/mL (3.7-17.9) H 03/08/17 06:20 Venous Blood Potassium 3.3 mmol/L (3.6-5.2) L 03/07/17 14:47 Urine Color Yellow (YELLOW) 03/07/17 12:46 Urine Clarity Hazy (Clear) 03/07/17 12:46 Urine pH 5.0 (5.0-8.0) 03/07/17 12:46 Ur Specific [place] 1.022 (1.003-1.030) 03/07/17 12:46 Urine Protein 3+ mg/dL (NEGATIVE) H 03/07/17 12:46 Urine Glucose (UA) 1+ mg/dL (Normal) H 03/07/17 12:46 Urine Ketones Trace mg/dL (NEGATIVE) 03/07/17 12:46 Urine Blood 3+ (NEGATIVE) H 03/07/17 12:46 Urine Nitrate Negative (NEGATIVE) 03/07/17 12:46 Urine Bilirubin Negative (NEGATIVE) 03/07/17 12:46 Urine Urobilinogen Normal mg/dL (0.2-1.0) 03/07/17 12:46 Ur Leukocyte Esterase Neg Arvi/uL (Negative) 03/07/17 12:46 Urine WBC (Auto) 1 /hpf (0-5) 03/07/17 12:46 Urine RBC (Auto) 29 /hpf (0-3) H 03/07/17 12:46 Amorphous Sediment Occ /ul (<OCC) H 03/07/17 12:46 Urine Bacteria Occ (<OCC) H 03/07/17 12:46 Vancomycin Trough 11.1 ug/mL (5.0-10.0) H 03/10/17 17:06 Rheum Arthritis Panel Negative (NEGATIVE) 03/08/17 06:20 Cycl Citrul Peptide IgG <16 Units (<20) 03/08/17 06:20 SS-A Antibody <1.0 AI (<1.0) 03/09/17 08:13 SS-B Ab Interp Negative (Negative) 03/09/17 08:13 SS-B Antibody <1.0 AI (<1.0) 03/09/17 08:13 SS-B Ab Interp Negative (Negative) 03/09/17 08:13 RPR Nonreactive (NONREACTIVE) 03/08/17 06:20 Influenza Typ A,B (EIA) Negative for flu a/b (NEGATIVE) 03/11/17 09:00 Blood Type A POSITIVE 03/07/17 12:13 Antibody Screen Negative 03/07/17 12:13 Discharge Exam - Head Exam Head Exam: NORMAL INSPECTION - Eye Exam Eye Exam: Normal appearance - ENT Exam ENT Exam: Normal Exam - Neck Exam Neck exam: Normal Inspection - Respiratory Exam Respiratory Exam: Decreased Breath Sounds - Cardiovascular Exam Cardiovascular Exam: REGULAR RHYTHM - GI/Abdominal Exam GI & Abdominal Exam: Normal Bowel Sounds - Rectal Exam Rectal Exam: Deferred - Exam Exam: NORMAL INSPECTION - Extremities Exam Extremities exam: tenderness - Back Exam Back exam: NORMAL INSPECTION - Neurological Exam Neurological exam: Altered - Psychiatric Exam Psychiatric exam: Depressed - Skin Skin Exam: Dry Discharge Plan - Discharge Medications Prescriptions: Cephalexin [cephalexin] 500 mg PO TID 7 Days Furosemide [Lasix] 40 mg PO DAILY #10 tab - Follow Up Plan Condition: STABLE Disposition: REHAB FACILITY/REHAB UNIT Instructions: Transient Ischemic Attack (DC), Altered Mental Status (GEN) Additional Instructions: PLEASE PLACE UNDER THE SERVICES OF DR Dao OLIVIA WHILE AT [facility] -- CALL UPON ARRIVAL WITH BED ASSIGNEMENT AND ADMITTING ORDERS CONTINUE ALL MEDICATIONS PER MED REC FALL PRECAUTIONS PER MED REC FOR FURTHER ORDERS, CALL DR OLIVIA'S OFFICE Referrals: Adeel Linda MD [Staff Provider] - Thomas Shen MD [Staff Provider] - Rafaela Olivia MD [Staff Provider] - Ray Eason MD [Staff Provider] - Sameer Kaplan MD [Staff Provider] -
--- NOTE | 2017-03-14 10:11 | PQF SEPSIS ---
This form is a permanent part of the medical record TO Chucho Irvin MD, Patient was admitted with slurred speech, right sided weakness, altered mental status,diffuculty walking and fever. Diagnosed with TIA, Pneumonia, Collapsed thoracic Vertebra. History of osteoarthritis , HTN, osteoporosis, etc. Progress note on 03/11 states Patient was being treated for Sepsis and Pneumonia however Dr. Shen ( Infectious Disease) states Possible contamination. Please claryfy if Sepsis was ruled in or ruled out. Clarification of your documentation is requested to better reflect the severity of illness and intensity of treatment of your patient. Indicators present [] Temp < 96.8 or > 100.4 [x] WBC count > 12,000/mm3 or <000/mm3 or 10% immature neutrophils [] Heart Rate > 90 [] Respiratory Rate > 20 x] Fever or hypothermia [] Chills [x] Positive blood cultures [] Hypotension [] Metabolic acidosis (Elevated lactate level, anion gap or reduced blood pH) [x] Acute confusion /Altered Mental Status [] Shock [x] Other: [] Weakness Location in the medical record that reflects the above clinical findings: [] Treatment Provided: [] PHYSICIAN'S RESPONSE Based on your medical judgment of the clinical indicators outlined above, are you treating this patient for a known or suspected: [] Sepsis / Septicemia Please specify organism if known [] [] SIRS (Systemic Inflammatory Response Syndrome) [] Severe Sepsis (Sepsis with Associated Organ Dysfunction) [] Fever of Unknown Origin [] Other, please indicate: [] [] If Unable to Determine, please check the box, sign and date. Present On Admission (POA) Indicator: [] Present at the time of admission [] Not present at the time of admission [] Clinically Undetermined In responding to this query, please exercise your independent professional judgment. The fact that a question is asked does not imply that any particular answer is desired or expected. Thank you for your clarification on this documentation. 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
[2017-03-16 11:11] VITALS: O2SAT 94
--- NOTE | 2017-03-21 00:28 | CARD ---
APPROVED REPORT EKG Measurement Heart [id number] <Conclusion> Sinus rhythm with premature supraventricular complexes Left anterior fascicular block Abnormal ECG
--- NOTE | 2017-03-21 00:28 | CARD ---
APPROVED REPORT EKG Measurement Heart [id number] <Conclusion> Sinus rhythm with premature supraventricular complexes Left axis deviation Abnormal ECG
== END 2017-03-13 20:20 | DRG 871 ==
LOC: C.ER 11:17 → C.9E 13:38 → C.6T 15:40
PROVIDERS: ADMIT Internal Medicine; ATTEND Internal Medicine
DX: A41.9 Sepsis, unspecified organism (principal); J18.9 Pneumonia, unspecified organism; G45.9 Transient cerebral ischemic attack, unspecified; M48.54XA Collapsed vertebra, not elsewhere classified, thoracic region, initial encounter for fracture; R65.20 Severe sepsis without septic shock; I10 Essential (primary) hypertension; I25.10 Atherosclerotic heart disease of native coronary artery without angina pectoris; M81.0 Age-related osteoporosis without current pathological fracture; R53.1 Weakness; R41.82 Altered mental status, unspecified; R74.8 Abnormal levels of other serum enzymes; M17.0 Bilateral primary osteoarthritis of knee

== ENCOUNTER 2017-10-05 18:41 | Emergency (ER) | payer MEDICARE, OTHER ==
[2017-10-05 18:47] VITALS: BMI 23.6
[2017-10-05 19:25] VITALS: RESP 18; TEMP 98.2
[2017-10-05 20:55] VITALS: PULSE 69
--- NOTE | 2017-10-05 21:12 | CT ---
EXAM: CT Head Without Intravenous Contrast EXAM DATE/TIME: 10/05/2017 7:23 PM CLINICAL HISTORY: 87 years old, male; Injury or trauma; Fall; Initial encounter; Blunt trauma (contusions or hematomas); Consciousness not specified; Injury date: 10-05-17; Additional info: Fell down stairs, hit head. Right parietal hematom TECHNIQUE: Axial computed tomography images of the head/brain without intravenous contrast. All CT scans at this facility use one or more dose reduction techniques, viz.: automated exposure control; ma/kV adjustment per patient size (including targeted exams where dose is matched to indication; i.e. head); or iterative reconstruction technique. Coronal and sagittal reformatted images were created and reviewed. COMPARISON: Prior head CT of 2017-03-07 FINDINGS: BRAIN: Areas of hypodensity in the white matter bilaterally, nonspecific in appearance, but most likely representing chronic small vessel ischemic changes, in a patient of this age. No significant acute abnormality identified. No acute hemorrhage seen within the brain. No acute extra-axial fluid collections visualized. No evidence of significant mass effect within the brain. VENTRICLES: No evidence of significant hydrocephalus. BONES/JOINTS: Findings compatible with an old fracture of the left medial orbital wall. No acute bony abnormality visualized. SOFT TISSUES: No acute abnormality of the visualized soft tissues is seen. SINUSES: Mild mucosal thickening in the bilateral maxillary, bilateral ethmoid and left frontal sinuses. MASTOID AIR CELLS: Mastoid air cells appear clear. IMPRESSION: - No evidence of acute intracranial injury or fractures. - See above for remaining findings.
--- NOTE | 2017-10-05 21:24 | CT ---
EXAM: CT Lumbar Spine Without Intravenous Contrast EXAM DATE/TIME: 10/05/2017 7:24 PM CLINICAL HISTORY: 87 years old, male; Injury or trauma; Fall; Initial encounter; Blunt trauma (contusions or hematomas); Injury date: 10-05-17; Additional info: Fell down stairs. Right lumbar hematoma. TECHNIQUE: Axial computed tomography images of the lumbar spine without intravenous contrast. All CT scans at this facility use one or more dose reduction techniques, viz.: automated exposure control; ma/kV adjustment per patient size (including targeted exams where dose is matched to indication; i.e. head); or iterative reconstruction technique. Coronal and sagittal reformatted images were created and reviewed. COMPARISON: No relevant prior studies available. FINDINGS: VERTEBRAE: 50% compression fracture of T12, with features compatible with a chronic compression fracture. 25% compression fracture of L1, with features compatible with a chronic compression fracture. Mild anterolisthesis/anterior subluxation of L4 over L5 and L5 over S1. This is most likely degenerative in etiology. There are bilateral facet joint degenerative changes at these levels. Vertebrae appear demineralized. No acute fractures are seen. No evidence of acute vertebral compression fractures. 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 Marked facet joint degenerative changes at L4-5 and L5-S1. SOFT TISSUES: Hematoma seen in the right lower flank subcutaneous fat, compatible with soft tissue contusion. KIDNEYS AND URETERS: Incidental low density probable cyst in the left kidney. IMPRESSION: - No acute lumbar spine fractures identified. 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 - Hematoma and contusion involving the right lower flank soft tissues. - See above for remaining findings.
--- NOTE | 2017-10-05 21:32 | C.PDOC ---
- HPI Time Seen by Provider: 10/05/17 19:12 Chief Complaint (Nursing): Trauma History Per: Patient Injury Occurred (Timing): Just Before Arrival Description Of Injury (Context): Fell down stairs. No LOC. Location Of Injury: Right: Back (Lower), Head Severity: Moderate Additional History Per: Prior Records - Fall Fall:Prior To Injury: Slipped Past Medical History Reviewed: Historical Data, Nursing Documentation, Vital Signs Vital Signs: Last Vital Signs Temp 98.2 F 10/05/17 19:24 Pulse 69 10/05/17 20:54 Resp 18 10/05/17 20:54 BP 164/86 H 10/05/17 20:54 Pulse Ox 98 10/05/17 20:54 - Medical History PMH: Arthritis, Asthma, Cardia Arrhythmia, Gastritis, HTN, Osteoporosis Family History: States: Unknown Family Hx - Social History Hx Tobacco Use: No Hx Alcohol Use: No Hx Substance Use: No - Immunization History Hx Tetanus Toxoid Vaccination: No Hx Influenza Vaccination: No Hx Pneumococcal Vaccination: No Review Of Systems Except As Marked, All Systems Reviewed And Found Negative. Constitutional: Negative for: Fever, Weakness Cardiovascular: Negative for: Chest Pain Respiratory: Negative for: Shortness of Breath Gastrointestinal: Negative for: Vomiting, Abdominal Pain Musculoskeletal: Positive for: Back Pain. Negative for: Neck Pain Neurological: Negative for: Weakness, Numbness, Seizures, Altered Mental Status Physical Exam - Physical Exam Appears: Non-toxic, No Acute Distress Skin: Normal Color, Warm, Dry Head: Other (right parietal scalp hematoma) Eye(s): bilateral: PERRL, EOMI Neck: Normal ROM, No Midline Cervical Tenderness, No Step Off Deformity, Supple Chest: Symmetrical, No Deformity, No Tenderness Cardiovascular: Rhythm Regular Respiratory: Normal Breath Sounds, No Accessory Muscle Use Gastrointestinal/Abdominal: Soft, No Tenderness Back: No CVA Tenderness, No Vertebral Tenderness, Paraspinal Tenderness (right paralumbar hematoma) Extremity: Normal ROM, No Tenderness, No Deformity Extremity: Bilateral: Hips Non-Tender, Pelvis-Stable Neurological/Psych: Oriented x3, Normal Speech, Normal Cognition, Normal Motor, Normal Sensation ED Course And Treatment O2 Sat by Pulse Oximetry: 98 Pulse Ox Interpretation: Normal - Radiology Nexus Criteria: Negative - CT Scan/US CT head Other Rad Studies (CT/US): Read By Radiologist, Radiology Report Reviewed CT/US Interpretation: IMPRESSION: - No evidence of acute intracranial injury or fractures. - See above for remaining findings. CT Lumbar spine Other Rad Studies (CT/US): Read By Radiologist, Radiology Report Reviewed CT/US Interpretation: IMPRESSION: - No acute lumbar spine fractures identified. 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 - Hematoma and contusion involving the right lower flank soft tissues. - See above for remaining findings. Reassessment Condition: Improved Disposition Counseled Patient/Family Regarding: Studies Performed, Diagnosis, Need For Followup, Rx Given - Disposition Referrals: Chucho Irvin MD [Staff Provider] - Disposition: HOME/ ROUTINE Disposition Time: 21:34 Condition: IMPROVED Additional Instructions: Follow up with your doctor. Return to the ER if you develop weakness, numbness, vomiting, trouble urinating, worsening of symptoms or if you have any other concerns. Prescriptions: traMADol/Acetaminophen [Ultracet 325 MG-37.5 MG] 1 tab PO Q4 PRN #30 tab PRN Reason: Pain, Severe (8-10) Instructions: Fall Prevention for Older Adults (ED), Head Injury (ED), Hematoma (ED) Forms: [employer] (Singaporean) Print Language: ROMANSH - Clinical Impression Clinical Impression: Minor closed head injury, Fall down stairs, Traumatic hematoma of lower back
[2017-10-05 21:48] VITALS: BP 154/85; O2SAT 99
== END 2017-10-05 21:48 | disposition home or self-care (01) ==
LOC: C.ER 18:41
DX: S09.90XA Unspecified injury of head, initial encounter (principal); S30.0XXA Contusion of lower back and pelvis, initial encounter; W10.9XXA Fall (on) (from) unspecified stairs and steps, initial encounter; I10 Essential (primary) hypertension; M81.0 Age-related osteoporosis without current pathological fracture
CPT/HCPCS: 70450; 72131; 96372; 99285; J1885

== ENCOUNTER 2017-10-20 08:51 | Emergency (ER) | payer MEDICARE, OTHER ==
[2017-10-20 08:53] VITALS: BMI 23.6
[2017-10-20 09:27] VITALS: PULSE 76; RESP 18
--- NOTE | 2017-10-20 11:18 | C.PDOC ---
History Of Present Illness 87 y/o male presents to the ER complaining of chronic foot pain which has been present for the past several days. Patient reports that he visited [facility] 2 weeks ago for a fall. A CAT scan was performed and found to be negative.Patient states that he is taking Tramadol. He is also complaining of constipation. He denies using stool softener. Chief Complaint (Nursing): Lower Extremity Problem/Injury History Per: Patient History/Exam Limitations: no limitations Onset/Duration Of Symptoms: Days Current Symptoms Are (Timing): Still Present Severity: Moderate Past Medical History Reviewed: Historical Data, Nursing Documentation, Vital Signs Vital Signs: Last Vital Signs Temp 98.5 F 10/20/17 11:19 Pulse 76 10/20/17 11:19 Resp 18 10/20/17 11:19 BP 161/72 H 10/20/17 11:19 Pulse Ox 97 10/20/17 12:36 - Medical History PMH: Arthritis, Asthma, Cardia Arrhythmia, Gastritis, HTN, Osteoporosis Surgical History: No Surg Hx Family History: States: No Known Family Hx - Social History Hx Tobacco Use: No Hx Alcohol Use: No Hx Substance Use: No - Immunization History Hx Tetanus Toxoid Vaccination: No Hx Influenza Vaccination: No Hx Pneumococcal Vaccination: No Review Of Systems Except As Marked, All Systems Reviewed And Found Negative. Gastrointestinal: Positive for: Constipation Musculoskeletal: Positive for: Foot Pain Neurological: Negative for: Weakness, Numbness Physical Exam - Physical Exam Appears: Non-toxic, No Acute Distress Skin: Normal Color, Warm, Ecchymosis (ecchymosis to the right lower back) Head: Atraumatic, Normacephalic Eye(s): bilateral: Normal Inspection Nose: Normal Oral Mucosa: Moist Neck: Supple Chest: Symmetrical Cardiovascular: Rhythm Regular Respiratory: Normal Breath Sounds, No Accessory Muscle Use, No Rales, No Rhonchi , No Wheezing Gastrointestinal/Abdominal: Normal Exam, Soft, No Tenderness Back: Normal Inspection, No CVA Tenderness Neurological/Psych: Oriented x3, Normal Speech, Normal Motor, Normal Sensation ED Course And Treatment O2 Sat by Pulse Oximetry: 97 (RA) Pulse Ox Interpretation: Normal - Other Rad No standard instances X-Ray: Viewed By Me, Read By Radiologist Interpretation: Indication: Rule out obstruction. Abdomen flat plate radiographs. Comparison: None. Findings: Moderate to severe diffuse constipation. Nonobstructive bowel gas pattern. No definite free air. Diffuse osseous demineralization and degenerative changes of the osseous structures. Impression: Moderate to severe diffuse constipation. Medical Decision Making Medical Decision Making: Plan: --X-Ray- Abdomen Disposition - Disposition Referrals: Chucho Irvin MD [Staff Provider] - Disposition: HOME/ ROUTINE Disposition Time: 10:30 Condition: GOOD Additional Instructions: Thank you for letting us take care of you today. The emergency medical care you received today was directed at your acute symptoms. If you were prescribed any medication, please fill it and take as directed. It may take several days for your symptoms to resolve. Return to the Emergency Department if your symptoms worsen, do not improve, or if you have any other problems. Please contact your doctor or call one of the physicians/clinics you have been referred to that are listed on the Patient Visit Information form that is included in your discharge packet. Bring any paperwork you were given at discharge with you along with any medications you are taking to your follow up visit. Our treatment cannot replace ongoing medical care by a primary care provider (PCP) outside of the emergency department. Thank you for allowing the [facility] team to be part of your care today. Follow up with your doctor in 2-3 days for a follow up appointment. Prescriptions: Docusate [Colace] 100 mg PO Q8 PRN #20 cap PRN Reason: Constipation Instructions: Constipation (ED) Forms: [employer] (Indonesian) - Clinical Impression Clinical Impression: Constipation, Foot pain - Scribe Statement The provider has reviewed the documentation as recorded by the Giselle Em Provider Attestation: All medical record entries made by the Giselle were at my direction and personally dictated by me. I have reviewed the chart and agree that the record accurately reflects my personal performance of the history, physical exam, medical decision making, and the department course for this patient. I have also personally directed, reviewed, and agree with the discharge instructions and disposition.
[2017-10-20 11:20] VITALS: BP 161/72; TEMP 98.5
--- NOTE | 2017-10-20 11:52 | RAD ---
Indication: Rule out obstruction Abdomen flat plate radiographs Comparison: None Findings: Moderate to severe diffuse constipation. Nonobstructive bowel gas pattern. No definite free air. Diffuse osseous demineralization and degenerative changes of the osseous structures. Impression: Moderate to severe diffuse constipation.
[2017-10-20 12:29] VITALS: O2SAT 97
== END 2017-10-20 11:21 | disposition home or self-care (01) ==
LOC: C.ER 08:51
DX: K59.00 Constipation, unspecified (principal); M79.673 Pain in unspecified foot